=== PATIENT | male | born 1965 | race Caucasian/White ===

== ENCOUNTER 2022-03-08 06:10 | Emergency (ER) | payer MEDICARE, SELFPAY ==
[2022-03-08 06:12] VITALS: BP 125/67; BP 126/82; PULSE 102; PULSE 110; RESP 13; TEMP 36.8; O2SAT 95; O2SAT 96
[2022-03-08 06:21] LABS: Glucose, Whole Blood 81 mg/dL (60-115)
[2022-03-08 06:43] LABS: Glucose, Whole Blood 92 mg/dL (60-115)
--- NOTE | 2022-03-08 07:35 | ED.GENADULT ---
HPI - General Adult General Chief complaint: Altered Mental Status Stated complaint: AMS, POC28 NOW 80 AFTER DEXTROSE Time Seen by Provider: 03/08/22 07:24 Source: patient, family (Son) and EMS Mode of arrival: EMS Limitations: no limitations History of Present Illness HPI narrative: 56 year old male history of insulin-dependent diabetes came in after was found hypoglycemic and unresponsive. History of insulin-dependent diabetes used to control it with Lantus and NovoLog now patient been using insulin pump implant for about 2 weeks now, patient stated that the bump has been working fine for the past 2 weeks blood sugar is running between 120 to 200s. Declined any recent change in insulin dosing. Patient been having vomiting and nonbloody watery diarrhea for 1 day he thinks due to bad food he ate decline abdominal pain. Patient also was doing heavy lifting because he is moving out. Related Data Allergies Allergy/AdvReac Type Severity Reaction Status Date / Time No Known Drug Allergies Allergy Mild NONE Unverified 05/10/20 14:38 [NO KNOWN DRUG ALLERGIES] Review of Systems Review of Systems: All other systems are reviewed and are negative Constitutional: Reports as per HPI and Reports no additional constitutional complaints Eyes: Reports as per HPI and Reports no additional eye complaints Reports system reviewed and no additional complaints, except as documented Cardiovascular: Reports as per HPI and Reports no additional cardiovascular complaints Respiratory: Reports as per HPI and Reports no additional respiratory complaints Gastrointestinal: Reports as per HPI and Reports no additional gastrointestinal complaints Genitourinary: Reports no additional female genitourinary complaints Musculoskeletal: Reports no additional musculoskeletal complaints Skin/Breast: Reports system reviewed and no additional complaints, except as docu Psychiatric: Reports no additional psychiatric complaints Endocrine: Reports no additional endocrine complaints Hematologic/Lymphatic: Reports no additional hematologic/lymphatic complaints Allergic/Immunologic: Reports no additional allergic/immunologic complaints Reports system reviewed and no additional complaints, except as documented and Reports Abnormal speech present [facility] Social History Social History Patient Tobacco Use Status: Current everyday Tobacco user Use of substances other than those prescribed or required for medical reasons: No Advance Directives: Yes Advance Directives Information Provided: Yes Advance Directives on File: No Physical Exam ED Vital Signs: Vital Signs - 24 hr 03/08/22 06:12 03/08/22 07:54 03/08/22 10:30 Temperature 98.2 F Pulse Rate 102 H 106 H 104 H Respiratory Rate 13 16 18 Blood Pressure 125/67 153/77 H 119/56 L Pulse Oximetry 95 97 Oxygen Delivery Method Room Air Room Air BMI result Body Mass Index 20.0 Vital signs have been reviewed as appeared to be correct. Blood pressure normal. Heart rate normal. Respiration rate normal. Temperature normal. Oxygen saturation normal. Appearance: Alert. Oriented X3. No acute distress. Head: Normal external exam. Normocephalic. Atraumatic. No Maya signs noted. No raccoon eyes noted Eyes: PERRLA. EOMI. Conjunctiva and sclera normal. Eyelids normal. ENT: TM's Normal. Pharynx normal. Uvula midline. Moist mucous membranes. No trismus noted. No drooling noted. No muffled voice noted. Neck: Normal inspection. Neck supple. FROM. No adenopathy. Thyroid Normal. No meningeal signs. No neck mass noted. CVS: Normal heart rate and rhythm. Heart sound normal. No murmurs noted. Pulses normal throughout. Respiratory: No respiratory distress. Painless inspiration. Breath sounds normal. No wheezes/rales/rhonchi noted. Chest nontender. No accessory muscle usage noted or decreased air movement noted. Abdomen: Soft and nontender. Bowel sounds normal in all 4 quadrants. No distention noted. No organomegaly noted. No visible injury noted. Back: No CVA tenderness. Full range of motion noted. Skin: Skin warm and dry. Normal skin color. Normal skin turgor. No rashes/lesions/lacerations noted. Extremities: No lower extremity edema. Extremities exhibit normal range of motion. Extremities nontender. Neuro: Oriented X 3. Cranial nerve exam: II-XII are grossly intact No motor deficit. No sensory deficit. Reflexes normal. Course Course Course Narrative: 56-year-old history of insulin-dependent diabetes recently start using insulin pump to control his diabetes, found unresponsive this morning after strenuous physical activity yesterday patient is trying to move out of his house, patient was observed in the emergency department, able to tolerate p.o. intake with no nausea or vomiting, leukocytosis likely reactionary to hypoglycemia and stress, physical exam/UA revealed no source of infection. Patient is back to his normal baseline. Will discharge to follow-up with PCP. Medical Decision Making Lab Data Lab results reviewed: Yes I reviewed the patient's lab results. Result diagrams: 03/08/22 07:53 03/08/22 07:53 Labs: Lab Results 03/08/22 03/08/22 03/08/22 Range/Units 06:18 06:40 07:53 WBC 20.5 H (4.8-10.8) X10*3/uL RBC 4.12 L (4.60-5.80) X10*6/uL Hgb 12.3 L (14.0-18.0) g/dl Hct 36.4 L (42.0-52.0) % MCV 88.3 (80.0-98.0) fL MCH 29.9 (27.0-33.0) pg MCHC 33.8 (31.0-36.0) g/dl RDW 13.2 (11.0-16.0) % Plt Count 313 (160-400) X10*3/uL MPV 9.8 (9.4-12.4) fL Immature Gran % (Auto) 0.6 H (0.0-0.4) % Neut % (Auto) 82.8 H (45-73) % Lymph % (Auto) 6.9 L (20-40) % [place] % (Auto) 5.7 (2-11) % Eos % (Auto) 3.8 (0-4) % Baso % (Auto) 0.2 (0-2) % Lymph # (Auto) 1.4 (1.2-4.9) X10*3/uL [place] # (Auto) 1.2 (0.1-1.2) X10*3/uL Eos # (Auto) 0.8 H (0.0-0.4) X10*3/uL Baso # (Auto) 0.0 (0.0-0.2) X10*3/uL Abs Immat Gran (auto) 0.12 H (0.00-0.03) X10*3/uL Absolute Neuts (auto) 17.0 H (2.0-8.3) x10*3/uL Absolute Nucleated RBC 0.000 (0.0-0.012) X10*3/uL Nucleated RBC % (auto) 0.0 (0.0-0.2) /100WBC Sodium (135-145) mmol/L Potassium (3.3-5.1) mmol/L Chloride (96-108) mmol/L Carbon Dioxide (22-29) mmol/L Anion Gap (12-20) BUN (9-16) mg/dL Creatinine (0.5-1.4) mg/dL Estim Creat Clear Calc Estimated GFR POC Glucose 81 92 (60-115) mg/dL Random Glucose (60-115) mg/dL Calcium (8.4-10.2) mg/dL Total Bilirubin (0.0-1.0) mg/dL Direct Bilirubin (0.0-0.5) mg/dL AST (5-37) U/L ALT (0-40) U/L Alkaline Phosphatase (39-117) U/L Troponin I High Sens (<3.5-35.0) ng/L Total Protein (6.5-8.0) g/dL Albumin (3.5-5.0) g/dL Lipase (8-78) U/L Urine Color Urine Appearance Urine pH (5.0-8.0) Ur Specific [place] (1.005-1.025) Urine Protein (NEG-TRACE) MG/DL Urine Glucose (UA) (NEG) MG/DL Urine Ketones (NEG) MG/DL Urine Blood (NEG) Urine Nitrite (NEG) Ur Leukocyte Esterase (NEG) Urine RBC (0) /HPF Urine WBC (0-4) /HPF Ur Squamous Epith Cells /LPF Urine Bacteria /LPF Urine Mucus /LPF COVID-19 (GABBY) (Negative) COVID-19 Clin Com 03/08/22 03/08/22 03/08/22 Range/Units 07:53 07:53 07:53 WBC (4.8-10.8) X10*3/uL RBC (4.60-5.80) X10*6/uL Hgb (14.0-18.0) g/dl Hct (42.0-52.0) % MCV (80.0-98.0) fL MCH (27.0-33.0) pg MCHC (31.0-36.0) g/dl RDW (11.0-16.0) % Plt Count (160-400) X10*3/uL MPV (9.4-12.4) fL Immature Gran % (Auto) (0.0-0.4) % Neut % (Auto) (45-73) % Lymph % (Auto) (20-40) % [place] % (Auto) (2-11) % Eos % (Auto) (0-4) % Baso % (Auto) (0-2) % Lymph # (Auto) (1.2-4.9) X10*3/uL [place] # (Auto) (0.1-1.2) X10*3/uL Eos # (Auto) (0.0-0.4) X10*3/uL Baso # (Auto) (0.0-0.2) X10*3/uL Abs Immat Gran (auto) (0.00-0.03) X10*3/uL Absolute Neuts (auto) (2.0-8.3) x10*3/uL Absolute Nucleated RBC (0.0-0.012) X10*3/uL Nucleated RBC % (auto) (0.0-0.2) /100WBC Sodium 138 (135-145) mmol/L Potassium 4.2 (3.3-5.1) mmol/L Chloride 102 (96-108) mmol/L Carbon Dioxide 26 (22-29) mmol/L Anion Gap 14 (12-20) BUN 20 H (9-16) mg/dL Creatinine 1.24 (0.5-1.4) mg/dL Estim Creat Clear Calc 55.7 Estimated GFR > 60 POC Glucose (60-115) mg/dL Random Glucose 108 (60-115) mg/dL Calcium 9.8 (8.4-10.2) mg/dL Total Bilirubin 0.5 (0.0-1.0) mg/dL Direct Bilirubin 0.2 (0.0-0.5) mg/dL AST 37 (5-37) U/L ALT 18 (0-40) U/L Alkaline Phosphatase 80 (39-117) U/L Troponin I High Sens 5.3 (<3.5-35.0) ng/L Total Protein 7.5 (6.5-8.0) g/dL Albumin 4.6 (3.5-5.0) g/dL Lipase 9 (8-78) U/L Urine Color Urine Appearance Urine pH (5.0-8.0) Ur Specific [place] (1.005-1.025) Urine Protein (NEG-TRACE) MG/DL Urine Glucose (UA) (NEG) MG/DL Urine Ketones (NEG) MG/DL Urine Blood (NEG) Urine Nitrite (NEG) Ur Leukocyte Esterase (NEG) Urine RBC (0) /HPF Urine WBC (0-4) /HPF Ur Squamous Epith Cells /LPF Urine Bacteria /LPF Urine Mucus /LPF COVID-19 (GABBY) Negative (Negative) COVID-19 Clin Com See Note 03/08/22 03/08/22 03/08/22 Range/Units 07:57 10:28 11:06 WBC (4.8-10.8) X10*3/uL RBC (4.60-5.80) X10*6/uL Hgb (14.0-18.0) g/dl Hct (42.0-52.0) % MCV (80.0-98.0) fL MCH (27.0-33.0) pg MCHC (31.0-36.0) g/dl RDW (11.0-16.0) % Plt Count (160-400) X10*3/uL MPV (9.4-12.4) fL Immature Gran % (Auto) (0.0-0.4) % Neut % (Auto) (45-73) % Lymph % (Auto) (20-40) % [place] % (Auto) (2-11) % Eos % (Auto) (0-4) % Baso % (Auto) (0-2) % Lymph # (Auto) (1.2-4.9) X10*3/uL [place] # (Auto) (0.1-1.2) X10*3/uL Eos # (Auto) (0.0-0.4) X10*3/uL Baso # (Auto) (0.0-0.2) X10*3/uL Abs Immat Gran (auto) (0.00-0.03) X10*3/uL Absolute Neuts (auto) (2.0-8.3) x10*3/uL Absolute Nucleated RBC (0.0-0.012) X10*3/uL Nucleated RBC % (auto) (0.0-0.2) /100WBC Sodium (135-145) mmol/L Potassium (3.3-5.1) mmol/L Chloride (96-108) mmol/L Carbon Dioxide (22-29) mmol/L Anion Gap (12-20) BUN (9-16) mg/dL Creatinine (0.5-1.4) mg/dL Estim Creat Clear Calc Estimated GFR POC Glucose 110 64 (60-115) mg/dL Random Glucose (60-115) mg/dL Calcium (8.4-10.2) mg/dL Total Bilirubin (0.0-1.0) mg/dL Direct Bilirubin (0.0-0.5) mg/dL AST (5-37) U/L ALT (0-40) U/L Alkaline Phosphatase (39-117) U/L Troponin I High Sens (<3.5-35.0) ng/L Total Protein (6.5-8.0) g/dL Albumin (3.5-5.0) g/dL Lipase (8-78) U/L Urine Color YELLOW Urine Appearance HAZY Urine pH 6.0 (5.0-8.0) Ur Specific [place] 1.025 (1.005-1.025) Urine Protein 2+ H (NEG-TRACE) MG/DL Urine Glucose (UA) NEG (NEG) MG/DL Urine Ketones 5 (NEG) MG/DL Urine Blood 3+ H (NEG) Urine Nitrite NEG (NEG) Ur Leukocyte Esterase NEG (NEG) Urine RBC 0 (0) /HPF Urine WBC 1-4 (0-4) /HPF Ur Squamous Epith Cells NONE /LPF Urine Bacteria NONE /LPF Urine Mucus 1+ /LPF COVID-19 (GABBY) (Negative) COVID-19 Clin Com 03/08/22 Range/Units 11:34 WBC (4.8-10.8) X10*3/uL RBC (4.60-5.80) X10*6/uL Hgb (14.0-18.0) g/dl Hct (42.0-52.0) % MCV (80.0-98.0) fL MCH (27.0-33.0) pg MCHC (31.0-36.0) g/dl RDW (11.0-16.0) % Plt Count (160-400) X10*3/uL MPV (9.4-12.4) fL Immature Gran % (Auto) (0.0-0.4) % Neut % (Auto) (45-73) % Lymph % (Auto) (20-40) % [place] % (Auto) (2-11) % Eos % (Auto) (0-4) % Baso % (Auto) (0-2) % Lymph # (Auto) (1.2-4.9) X10*3/uL [place] # (Auto) (0.1-1.2) X10*3/uL Eos # (Auto) (0.0-0.4) X10*3/uL Baso # (Auto) (0.0-0.2) X10*3/uL Abs Immat Gran (auto) (0.00-0.03) X10*3/uL Absolute Neuts (auto) (2.0-8.3) x10*3/uL Absolute Nucleated RBC (0.0-0.012) X10*3/uL Nucleated RBC % (auto) (0.0-0.2) /100WBC Sodium (135-145) mmol/L Potassium (3.3-5.1) mmol/L Chloride (96-108) mmol/L Carbon Dioxide (22-29) mmol/L Anion Gap (12-20) BUN (9-16) mg/dL Creatinine (0.5-1.4) mg/dL Estim Creat Clear Calc Estimated GFR POC Glucose 220 H (60-115) mg/dL Random Glucose (60-115) mg/dL Calcium (8.4-10.2) mg/dL Total Bilirubin (0.0-1.0) mg/dL Direct Bilirubin (0.0-0.5) mg/dL AST (5-37) U/L ALT (0-40) U/L Alkaline Phosphatase (39-117) U/L Troponin I High Sens (<3.5-35.0) ng/L Total Protein (6.5-8.0) g/dL Albumin (3.5-5.0) g/dL Lipase (8-78) U/L Urine Color Urine Appearance Urine pH (5.0-8.0) Ur Specific [place] (1.005-1.025) Urine Protein (NEG-TRACE) MG/DL Urine Glucose (UA) (NEG) MG/DL Urine Ketones (NEG) MG/DL Urine Blood (NEG) Urine Nitrite (NEG) Ur Leukocyte Esterase (NEG) Urine RBC (0) /HPF Urine WBC (0-4) /HPF Ur Squamous Epith Cells /LPF Urine Bacteria /LPF Urine Mucus /LPF COVID-19 (GABBY) (Negative) COVID-19 Clin Com Discharge Plan Discharge Clinical Impression: Hypoglycemia due to insulin Patient Disposition: Home, Self-Care
[2022-03-08] MEDS: 0.9 % Sodium Chloride 1,000 ML 999 ML IV (07:51)
[2022-03-08] MEDS: ondansetron HCL 4 MG/2 ML VIAL IVPUSH (07:51)
[2022-03-08] MEDS: Famotidine/PF 20 MG/2 ML VIAL IVPUSH (07:52)
[2022-03-08 07:54] VITALS: BP 153/77; PULSE 106; RESP 16; O2SAT 97
[2022-03-08 07:58] LABS: MANUAL DIFF FLAG NO
[2022-03-08 07:59] LABS: Glucose, Whole Blood 110 mg/dL (60-115)
[2022-03-08 08:01] LABS: Basophils Percent Auto 0.2 % (0-2); Eosinophils Absolute Auto 0.8 X10*3/uL (0.0-0.4); Eosinophils Percent Auto 3.8 % (0-4); Hematocrit 36.4 % (42.0-52.0); Hemoglobin 12.3 g/dl (14.0-18.0); Imm Gran Abs Auto 0.12 X10*3/uL (0.00-0.03); Imm Gran Pct Auto 0.6 % (0.0-0.4); Lymphocytes Absolute Auto 1.4 X10*3/uL (1.2-4.9); Lymphocytes Percent Auto 6.9 % (20-40); Mean Corpuscular HGB Conc 33.8 g/dl (31.0-36.0); Mean Corpuscular Hemoglobin 29.9 pg (27.0-33.0); Mean Corpuscular Volume 88.3 fL (80.0-98.0); Mean Platelet Volume 9.8 fL (9.4-12.4); Monocytes Absolute Auto 1.2 X10*3/uL (0.1-1.2); Monocytes Percent Auto 5.7 % (2-11); Neutrophils Percent Auto 82.8 % (45-73); Platelet Count 313 X10*3/uL (160-400); Red Blood Count 4.12 X10*6/uL (4.60-5.80); Red Cell Distribution Width 13.2 % (11.0-16.0); White Blood Count 20.5 X10*3/uL (4.8-10.8)
--- NOTE | 2022-03-08 08:02 | PC.NURSE ---
Pt alert/oriented. Repeat POC 110. Pt reports vomiting but typical for him with low blood sugar. Thirsty. Fluids started and meds given IV as ordered. Son at bedside who states pt was unresponsive and seizure like activity at home [employer]. Son usually able to get sugar up but unable d/t no sugar found in home. Pt denies pain or discomfort. Labs drawn/sent. NSR on tele Skin midly pale, warm and dry
[2022-03-08 08:15] LABS: COVID-19 Test Negative (Negative)
[2022-03-08 08:17] LABS: Alanine Aminotransferase 18 U/L (0-40); Albumin Level 4.6 g/dL (3.5-5.0); Alkaline Phosphatase 80 U/L (39-117); Anion Gap 14 (12-20); Aspartate Amino Transferase 37 U/L (5-37); Bilirubin Direct 0.2 mg/dL (0.0-0.5); Bilirubin Total 0.5 mg/dL (0.0-1.0); Blood Urea Nitrogen 20 mg/dL (9-16); Calcium 9.8 mg/dL (8.4-10.2); Carbon Dioxide 26 mmol/L (22-29); Chloride 102 mmol/L (96-108); Creatinine Clr Calc Pharmacy 55.7; Estimated Glomerular Filt Rate > 60; Glucose Random 108 mg/dL (60-115); Lipase 9 U/L (8-78); Potassium 4.2 mmol/L (3.3-5.1); Sodium 138 mmol/L (135-145); Total Protein 7.5 g/dL (6.5-8.0)
[2022-03-08 08:23] LABS: Troponin-I High Sensitivity 5.3 ng/L (<3.5-35.0)
--- NOTE | 2022-03-08 09:20 | PC.NURSE ---
No bld cx at this time per Dr Amos, awaiting UA and xray, pt encouraged to void, sleeping
[2022-03-08 10:30] VITALS: BP 119/56; PULSE 104; RESP 18
--- NOTE | 2022-03-08 10:31 | PC.NURSE ---
Pt repeat POC 64, given tuna sandwich and gingerale, Dr Amos notified. Pt remains alert/oriented.
[2022-03-08 10:32] LABS: Glucose, Whole Blood 64 mg/dL (60-115)
[2022-03-08 11:13] LABS: Appearance Urine HAZY; Color Urine YELLOW; Glucose Urine UA NEG (NEG); Leukocyte Esterase Urine NEG (NEG); Nitrite Urine NEG (NEG); Specific Gravity - Urine 1.025 (1.005-1.025); UACC Culture Trigger NO; Urine Blood 3+ (NEG); Urine Ketones 5 MG/DL (NEG); Urine Protein 2+ MG/DL (NEG-TRACE)
[2022-03-08 11:24] LABS: Mucus Urine 1+ /LPF
[2022-03-08 11:25] LABS: RBC Urine 0 /HPF (0)
[2022-03-08 11:37] LABS: Glucose, Whole Blood 220 mg/dL (60-115)
== END 2022-03-08 14:12 | disposition home or self-care (01) ==
PROVIDERS: Emergency Provider Emergency Medicine
DX: E11.649 Type 2 diabetes mellitus with hypoglycemia without coma (principal); Z20.822 Contact with and (suspected) exposure to COVID-19; F17.200 Nicotine dependence, unspecified, uncomplicated; Z79.4 Long term (current) use of insulin
CPT/HCPCS: 80048; 80076; 81001; 82947; 83690; 84484; 85025; 87635; 96361; 96374; 96375; 99284; 99285; J2405

== ENCOUNTER 2022-03-09 20:53 | Emergency (ER) | payer MEDICARE, SELFPAY ==
[2022-03-09 21:02] VITALS: BP 144/92; PULSE 99; RESP 16; O2SAT 95; BMI 19.5
--- NOTE | 2022-03-09 21:03 | ECG_ITS ---
Test Reason : ALTERED MENTAL Blood Pressure : / mmHG Vent. Rate : 099 BPM Atrial Rate : 099 BPM P-R Int : 132 ms QRS Dur : 094 ms QT Int : 354 ms P-R-T Axes : 071 065 068 degrees QTc Int : 454 ms Normal sinus rhythm Normal ECG When compared with ECG of 05-DEC-2011 17:16, No significant change was found Referred By: Kelly Balbuena Electronically Signed By:Lex Lord
--- NOTE | 2022-03-09 21:05 | ED.AMS ---
HPI - Altered Mental Status General Chief Complaint: Altered Mental Status Stated Complaint: Hypoglycemia Time Seen by Provider: 03/09/22 21:03 Source: patient Mode of arrival: EMS Limitations: no limitations History of Present Illness MD complaint: altered mental status and decreased responsiveness Onset (ago): minute(s) (just prior to arrival ) Timing confirmed by: family member Severity: moderate Context: alcohol abuse (recently drank today doesn't think he ate dinner, still has insulin pump on) Associated symptoms: malaise Treatments prior to arrival: other (EMS states his device read 64 and he refused oral glucose gel so when they brought him here BS 44 with our machine, fed and gave patient juice right away, he perked up and removed his device) Related Data Allergies Allergy/AdvReac Type Severity Reaction Status Date / Time No Known Drug Allergies Allergy Mild NONE Verified 03/09/22 21:04 [NO KNOWN DRUG ALLERGIES] Review of Systems Review of Systems: Constitutional : No Fever, No Chills ENT/Mouth : No sore throat, No Rhinorrhea Eyes: No Eye Pain, No Swelling, No Redness Cardiovascular : No Chest Pain, No SOB, No Dyspnea on Exertion, No Orthopnea, No Edema, No Palpitations Respiratory : No Cough, No Sputum, No Wheezing Gastrointestinal : No Nausea, No Vomiting, No Diarrhea, No abdominal Pain, No Hematochezia, No Melena Genitourinary : No Dysuria, No Urinary Frequency, No Hematuria, Musculoskeletal : No joint pain, No Myalgias, No Joint Swelling Skin : No Skin Lesions, No rash Neuro : No Weakness, No Numbness, No Dizziness, No Headache Psych : No Anxiety/Panic, No Depression Heme/Lymph: No Bruising, No Bleeding,No Lymphadenopathy Endocrine : No Polyuria, No Polydipsia All other systems reviewed and are negative [facility] Past Medical History Attestation statement: The following information was validated with the patient. Medical History Diabetes Social History Social History (Updated 03/09/22 @ 21:06 by Kelly Balbuena DO) Alcohol intake: current Alcohol intake frequency: a few times a month Alcohol type: hard liquor Patient Tobacco Use Status: Current everyday Tobacco user Smoked in Last 30 Days: Yes Use of substances other than those prescribed or required for medical reasons: No Advance Directives: No Advance Directives Information Provided: No Physical Exam ED Vital Signs: Vital Signs - 24 hr 03/09/22 21:02 03/09/22 22:00 03/09/22 23:46 Temperature 98.2 F Pulse Rate 99 97 99 Respiratory Rate 16 16 16 Blood Pressure 144/92 H 140/70 H 140/57 H Pulse Oximetry 95 98 96 Oxygen Delivery Method Room Air Room Air Room Air BMI result Body Mass Index 19.5 Appearance: Oriented X3. No acute distress. slightly sleepy Eyes: Pupils equal, round and reactive to light. ENT: Pharynx mildly dry MM Neck: Normal inspection. Neck supple. CVS: Normal heart rate and rhythm. Pulses normal. Respiratory: No respiratory distress. Breath sounds normal. Abdomen: Soft and non-tender. insulin device removed Skin: Skin warm and dry. Normal skin color. Normal skin turgor. Extremities: No lower extremity edema. Neuro: Oriented X 3. No motor deficit. No sensory deficit. Course Course Course Narrative: no response to oral food still in 50s on recheck aga give IV dextrose and observe BS up to 300s mild dehydration, BS up at baseline, eating - attempting to find ride home at this time MDM - Altered Mental Status MDM Narrative Medical decision making narrative: 56 yo male hx of IDDM with ETOH use today still came in with his insulin pump on - not treated prior to arrival, BS 44 on arrival. Responded to oral food here. Denies recently being ill. Suspect he drank today and didn't eat dinner - doesn't remember eating dinner tonight. No head trauma. Lab Data Result diagrams: 03/09/22 21:35 03/09/22 21:35 Labs: Lab Results 03/09/22 03/09/22 03/09/22 Range/Units 20:59 21:16 21:29 WBC (4.8-10.8) X10*3/uL RBC (4.60-5.80) X10*6/uL Hgb (14.0-18.0) g/dl Hct (42.0-52.0) % MCV (80.0-98.0) fL MCH (27.0-33.0) pg MCHC (31.0-36.0) g/dl RDW (11.0-16.0) % Plt Count (160-400) X10*3/uL MPV (9.4-12.4) fL Immature Gran % (Auto) (0.0-0.4) % Neut % (Auto) (45-73) % Lymph % (Auto) (20-40) % [place] % (Auto) (2-11) % Eos % (Auto) (0-4) % Baso % (Auto) (0-2) % Lymph # (Auto) (1.2-4.9) X10*3/uL [place] # (Auto) (0.1-1.2) X10*3/uL Eos # (Auto) (0.0-0.4) X10*3/uL Baso # (Auto) (0.0-0.2) X10*3/uL Abs Immat Gran (auto) (0.00-0.03) X10*3/uL Absolute Neuts (auto) (2.0-8.3) x10*3/uL Absolute Nucleated RBC (0.0-0.012) X10*3/uL Nucleated RBC % (auto) (0.0-0.2) /100WBC Sodium (135-145) mmol/L Potassium (3.3-5.1) mmol/L Chloride (96-108) mmol/L Carbon Dioxide (22-29) mmol/L Anion Gap (12-20) BUN (9-16) mg/dL Creatinine (0.5-1.4) mg/dL Estim Creat Clear Calc Estimated GFR POC Glucose 44 L* 55 L* 314 H (60-115) mg/dL Random Glucose (60-115) mg/dL Calcium (8.4-10.2) mg/dL Magnesium (1.6-2.6) mg/dL Total Bilirubin (0.0-1.0) mg/dL Direct Bilirubin (0.0-0.5) mg/dL AST (5-37) U/L ALT (0-40) U/L Alkaline Phosphatase (39-117) U/L Total Protein (6.5-8.0) g/dL Albumin (3.5-5.0) g/dL Ethyl Alcohol mg/dL COVID-19 (GABBY) (Negative) COVID-19 Clin Com 03/09/22 03/09/22 03/09/22 Range/Units 21:35 21:35 21:35 WBC 13.8 H (4.8-10.8) X10*3/uL RBC 3.95 L (4.60-5.80) X10*6/uL Hgb 12.2 L (14.0-18.0) g/dl Hct 36.8 L (42.0-52.0) % MCV 93.2 (80.0-98.0) fL MCH 30.9 (27.0-33.0) pg MCHC 33.2 (31.0-36.0) g/dl RDW 13.1 (11.0-16.0) % Plt Count 266 (160-400) X10*3/uL MPV 10.7 (9.4-12.4) fL Immature Gran % (Auto) 0.4 (0.0-0.4) % Neut % (Auto) 67.4 (45-73) % Lymph % (Auto) 11.0 L (20-40) % [place] % (Auto) 8.8 (2-11) % Eos % (Auto) 12.2 H (0-4) % Baso % (Auto) 0.2 (0-2) % Lymph # (Auto) 1.5 (1.2-4.9) X10*3/uL [place] # (Auto) 1.2 (0.1-1.2) X10*3/uL Eos # (Auto) 1.7 H (0.0-0.4) X10*3/uL Baso # (Auto) 0.0 (0.0-0.2) X10*3/uL Abs Immat Gran (auto) 0.06 H (0.00-0.03) X10*3/uL Absolute Neuts (auto) 9.3 H (2.0-8.3) x10*3/uL Absolute Nucleated RBC 0.000 (0.0-0.012) X10*3/uL Nucleated RBC % (auto) 0.0 (0.0-0.2) /100WBC Sodium 138 (135-145) mmol/L Potassium 4.4 (3.3-5.1) mmol/L Chloride 104 (96-108) mmol/L Carbon Dioxide 20 L (22-29) mmol/L Anion Gap 18 (12-20) BUN 19 H (9-16) mg/dL Creatinine 1.58 H (0.5-1.4) mg/dL Estim Creat Clear Calc 42.8 Estimated GFR 46 POC Glucose (60-115) mg/dL Random Glucose 336 H D (60-115) mg/dL Calcium 8.7 D (8.4-10.2) mg/dL Magnesium 2.0 (1.6-2.6) mg/dL Total Bilirubin 0.3 (0.0-1.0) mg/dL Direct Bilirubin 0.2 (0.0-0.5) mg/dL AST 57 H (5-37) U/L ALT 38 (0-40) U/L Alkaline Phosphatase 73 (39-117) U/L Total Protein 7.1 (6.5-8.0) g/dL Albumin 4.4 (3.5-5.0) g/dL Ethyl Alcohol 19 mg/dL COVID-19 (GABBY) Negative (Negative) COVID-19 Clin Com See Note 03/09/22 Range/Units 23:43 WBC (4.8-10.8) X10*3/uL RBC (4.60-5.80) X10*6/uL Hgb (14.0-18.0) g/dl Hct (42.0-52.0) % MCV (80.0-98.0) fL MCH (27.0-33.0) pg MCHC (31.0-36.0) g/dl RDW (11.0-16.0) % Plt Count (160-400) X10*3/uL MPV (9.4-12.4) fL Immature Gran % (Auto) (0.0-0.4) % Neut % (Auto) (45-73) % Lymph % (Auto) (20-40) % Cass[place] % (Auto) (2-11) % Eos % (Auto) (0-4) % Baso % (Auto) (0-2) % Lymph # (Auto) (1.2-4.9) X10*3/uL Cassia # (Auto) (0.1-1.2) X10*3/uL Eos # (Auto) (0.0-0.4) X10*3/uL Baso # (Auto) (0.0-0.2) X10*3/uL Abs Immat Gran (auto) (0.00-0.03) X10*3/uL Absolute Neuts (auto) (2.0-8.3) x10*3/uL Absolute Nucleated RBC (0.0-0.012) X10*3/uL Nucleated RBC % (auto) (0.0-0.2) /100WBC Sodium (135-145) mmol/L Potassium (3.3-5.1) mmol/L Chloride (96-108) mmol/L Carbon Dioxide (22-29) mmol/L Anion Gap (12-20) BUN (9-16) mg/dL Creatinine (0.5-1.4) mg/dL Estim Creat Clear Calc Estimated GFR POC Glucose 476 H* (60-115) mg/dL Random Glucose (60-115) mg/dL Calcium (8.4-10.2) mg/dL Magnesium (1.6-2.6) mg/dL Total Bilirubin (0.0-1.0) mg/dL Direct Bilirubin (0.0-0.5) mg/dL AST (5-37) U/L ALT (0-40) U/L Alkaline Phosphatase (39-117) U/L Total Protein (6.5-8.0) g/dL Albumin (3.5-5.0) g/dL Ethyl Alcohol mg/dL COVID-19 (GABBY) (Negative) COVID-19 Clin Com ECG Data ECG #1: Attestation: I personally reviewed and interpreted this ECG as follows: ECG interpretation date: 03/09/22 ECG interpretation time: 21:33 Interpretation: Rate: 99 Rhythm: NSR Sullivan: normal Normal P waves. Normal ABNER. Normal QRS complex. ST T wave : normal no ROBERT qTC: normal prior studies: no acute ischemia The study has been interpreted contemporaneously by me. . Discharge Plan Discharge Clinical Impression: Hypoglycemia, Acute dehydration Patient Disposition: Home, Self-Care Instructions: Hypoglycemia in a Person with Diabetes (ED), Dehydration (ED) Additional Instructions: return to ED for any worsening symptoms or concerns stay with responsible adult, monitor your sugars please avoid alcohol you were dehydrated make sure you drink at least 60 ounces of water the next two days Stand Alone Forms: Work/School Release
--- NOTE | 2022-03-09 21:18 | PC.NURSE ---
PATIENT CAME IN WITH A BLOOD SUGAR OF 44 ,MD GUILLERMO AWARE ,PATIENT DRANK 5 ORANGE JUICE ,3 SMALL CANDY BARS AND A PB AND J SANDWICH ,BLOOD SUGAR TAKEN AGAIN IT WAS 57 ,MD GUILLERMO AND RN AWARE .
[2022-03-09 21:35] LABS: Glucose, Whole Blood 55 mg/dL (60-115)
[2022-03-09 21:35] LABS: Glucose, Whole Blood 44 mg/dL (60-115)
[2022-03-09 21:36] LABS: Glucose, Whole Blood 314 mg/dL (60-115)
[2022-03-09] MEDS: Dextrose 50 % 25 GM/50 ML SYRINGE IVPUSH (21:37)
[2022-03-09 21:39] LABS: MANUAL DIFF FLAG NO
[2022-03-09] MEDS: 0.9 % Sodium Chloride 1,000 ML 999 ML IV (21:39)
[2022-03-09 21:46] LABS: Basophils Percent Auto 0.2 % (0-2); Eosinophils Absolute Auto 1.7 X10*3/uL (0.0-0.4); Eosinophils Percent Auto 12.2 % (0-4); Hematocrit 36.8 % (42.0-52.0); Hemoglobin 12.2 g/dl (14.0-18.0); Imm Gran Abs Auto 0.06 X10*3/uL (0.00-0.03); Imm Gran Pct Auto 0.4 % (0.0-0.4); Lymphocytes Absolute Auto 1.5 X10*3/uL (1.2-4.9); Mean Corpuscular HGB Conc 33.2 g/dl (31.0-36.0); Mean Corpuscular Hemoglobin 30.9 pg (27.0-33.0); Mean Corpuscular Volume 93.2 fL (80.0-98.0); Mean Platelet Volume 10.7 fL (9.4-12.4); Monocytes Absolute Auto 1.2 X10*3/uL (0.1-1.2); Monocytes Percent Auto 8.8 % (2-11); Neutrophils Absolute Auto 9.3 x10*3/uL (2.0-8.3); Neutrophils Percent Auto 67.4 % (45-73); PLT CLUMP 1; Red Blood Count 3.95 X10*6/uL (4.60-5.80); Red Cell Distribution Width 13.1 % (11.0-16.0); SCAN SMEAR FLAG 1
[2022-03-09 21:48] LABS: Platelet Count 266 X10*3/uL (160-400); White Blood Count 13.8 X10*3/uL (4.8-10.8)
[2022-03-09 21:56] LABS: Alanine Aminotransferase 38 U/L (0-40); Albumin Level 4.4 g/dL (3.5-5.0); Alkaline Phosphatase 73 U/L (39-117); Anion Gap 18 (12-20); Aspartate Amino Transferase 57 U/L (5-37); Bilirubin Direct 0.2 mg/dL (0.0-0.5); Bilirubin Total 0.3 mg/dL (0.0-1.0); Blood Urea Nitrogen 19 mg/dL (9-16); Calcium 8.7 mg/dL (8.4-10.2); Carbon Dioxide 20 mmol/L (22-29); Chloride 104 mmol/L (96-108); Creatinine Clr Calc Pharmacy 42.8; Estimated Glomerular Filt Rate 46; Ethanol 19 mg/dL; Glucose Random 336 mg/dL (60-115); Potassium 4.4 mmol/L (3.3-5.1); Sodium 138 mmol/L (135-145); Total Protein 7.1 g/dL (6.5-8.0)
[2022-03-09 21:58] LABS: COVID-19 Test Negative (Negative)
[2022-03-09 22:00] VITALS: BP 140/70; PULSE 97; RESP 16; TEMP 36.8; O2SAT 98
--- NOTE | 2022-03-09 22:21 | PC.NURSE ---
PATIENT GOT CHANGE INTO HOSPITAL ATTIRE .
--- NOTE | 2022-03-09 22:59 | PC.NURSE ---
pt a&ox3, vss - hypertensive, pt ambulated independently to the bathroom - steady on feet, reports that he is feeling much better.
[2022-03-09] MEDS: 0.9 % Sodium Chloride 1,000 ML 999 ML IVCONT (23:03)
[2022-03-09 23:46] VITALS: BP 140/57; PULSE 99; RESP 16; O2SAT 96
[2022-03-09 23:50] LABS: Glucose, Whole Blood 476 mg/dL (60-115)
== END 2022-03-10 00:52 | disposition home or self-care (01) ==
PROVIDERS: Emergency Provider Emergency Medicine
DX: E86.0 Dehydration (principal); R41.82 Altered mental status, unspecified; E16.2 Hypoglycemia, unspecified; Z20.822 Contact with and (suspected) exposure to COVID-19; Z79.899 Other long term (current) drug therapy
CPT/HCPCS: 80048; 80076; 82077; 82947; 83735; 85025; 87635; 93005; 96374; 99284

== ENCOUNTER 2023-04-05 07:59 | Inpatient (IN) | payer MEDICARE, SELFPAY ==
[2023-04-05] VITALS (12 sets, daily range): BP systolic 99–167; BP diastolic 53–82; PULSE 75–118; RESP 17–28; TEMP 36.8–37.1; O2SAT 96–99; BMI 20.3; BMI 20.5
--- NOTE | ~2023-04-05 | MR_ITS ---
EXAMINATION: MR FOOT WITHOUT AND WITH CONTRAST, RIGHT CLINICAL INFORMATION: Diabetic foot ulcer. COMPARISON: X-ray 04/07/2023. TECHNIQUE: MRI in a 1.5 Chante magnet without and with contrast. 5 mL Gadavist. FINDINGS: There is prominent metallic artifact, distorting the tissue along the plantar aspect of the first proximal phalanx/first DIP joint. This markedly limits evaluation. This likely is related to the metallic foreign body seen on the x-ray. There is soft tissue irregularity, wound/ulceration along the plantar and possibly the lateral aspect of the first toe, in the region of the first IP joint and the marginating phalanges. Metallic artifact limits evaluation. There is circumferential soft tissue swelling of the toe, with increased T2 signal from edema/cellulitis. No loculated or drainable fluid collection/abscess is identified in the provided images. Evaluation of osteomyelitis in the first toe is limited due to artifact. There is apparent increased T2, low T1 signal and enhancement in the first distal phalanx, suspicious for osteomyelitis. Apparent increased T2/low T1 signal and question of enhancement in the first proximal phalanx, appearing more prominent distally. Evaluation is markedly limited by artifact. Findings are suspicious for osteomyelitis. As the suspected osteomyelitis marginates the first IP joint, septic arthritis would need to be considered and excluded. Question mild peritendinitis along the flexor hallucis longus as it courses along the toe. There is increased T2 signal/edema in the intrinsic muscles of foot, which can be seen with denervation in diabetic patients, myositis. There is dorsal foot soft tissue swelling, subcutaneous edema/cellulitis. MR/MR foot RT wo/w con IMPRESSION: Prominent metallic artifact in the plantar aspect of the first toe, limiting evaluation. Soft tissue wound/ulceration along the plantar and possible medial aspect of the first toe as detailed above. There is soft tissue swelling, with edema/cellulitis. No loculated or drainable fluid collection or abscess is seen. Apparent abnormal findings in the first distal phalanx and the first proximal phalanx, suspicious for osteomyelitis. Metallic artifact limits evaluation. Further evaluation with WBC bone scan can be considered as clinically warranted. As suspected osteomyelitis marginates the first IP joint, septic arthritis would need to be considered and excluded in the first IP joint. Question mild peritendinitis of the flexor hallucis longus as it courses in the toe. Edema in the intrinsic muscles of the foot, differential considerations include denervation edema, myositis. Dorsal foot soft tissue swelling and subcutaneous edema/cellulitis.
--- NOTE | ~2023-04-05 | CT_ITS ---
EXAMINATION: CT ABDOMEN AND PELVIS WITHOUT CONTRAST CLINICAL INFORMATION: Abdominal pain. Nausea vomiting and diarrhea. COMPARISON: None available. TECHNIQUE: Multidetector volumetric imaging was performed from the superior aspect of the liver through the pubic symphysis. Sagittal and coronal reformatted images were obtained on the technologist's workstation. This CT examination was performed using dose optimization techniques as appropriate, variously including the following: *Automated exposure control *Adjustment of mA and/or kV according to patient size (this includes techniques or standardized protocols for targeted exams where dose is matched to indication/reason for exam; i.e. extremities or head) *Use of iterative reconstruction technique DLP: 329 mGy-cm FINDINGS: LUNG BASES: The visualized lung bases are unremarkable. LIVER, GALLBLADDER, AND BILIARY TREE: The liver is normal in size, shape, and attenuation. No focal hepatic lesion or biliary ductal dilatation is present. The gallbladder is unremarkable with no evidence of radiopaque gallstones, gallbladder wall thickening, or obvious pericholecystic inflammatory changes. PANCREAS: Unremarkable. SPLEEN: Unremarkable. ADRENAL GLANDS: Right adrenal gland calcification. There are related to old trauma or infection. No imaging follow-up recommended. The left adrenal gland is normal. KIDNEYS AND URETERS: The kidneys are normal in size, shape, and attenuation. No hydronephrosis, hydroureter, or calculi seen. There is bilateral perinephric stranding. BLADDER: Unremarkable. GASTROINTESTINAL TRACT: Question mild colitis of the left colon and proximal sigmoid colon. Small and large bowel is otherwise unremarkable. The appendix is unremarkable. ABDOMINAL WALL: No significant hernia is appreciated. LYMPH NODES: Normal. VASCULAR: Unremarkable. PELVIC VISCERA: Unremarkable. OSSEOUS STRUCTURES: Unremarkable. CT/CT abdomen pelvis wo IV con IMPRESSION: Question mild colitis of the distal colon. Fleischner guidelines were followed.
--- NOTE | ~2023-04-05 | XR_ITS ---
EXAMINATION: XR FOOT, RIGHT CLINICAL INFORMATION: Left foot ulcer COMPARISON: None available. TECHNIQUE: AP, lateral, and oblique views of the right foot. FINDINGS: Bone alignment is normal. No fracture or dislocation. No x-ray evidence of osteomyelitis. There is a soft tissue dressing overlying the great toe. There is soft tissue swelling of the great toe. On the lateral view there is a radiopaque density projecting over the plantar surface of the great toe adjacent to the proximal phalanx measuring 1 to 2 mm. It is uncertain whether this represents a soft tissue foreign body or could represent something on the skin or related to the dressing. There is a metal radiopaque foreign body suggestive of a broken needle in the soft tissues adjacent to the lateral plantar foot near the calcaneocuboid joint and over the plantar heel consistent with a soft tissue foreign bodies. XR/XR foot RT 2V IMPRESSION: No x-ray evidence of osteomyelitis. Soft tissue swelling of the great toe. 2 mm radiopaque density in the soft tissues adjacent to the plantar proximal phalanx questionable for soft tissue foreign body versus something on the patient's skin or related to dressing. Follow-up x-ray following removal of the dressing could be performed if clinically indicated. 2 broken needles in the plantar foot near the calcaneocuboid joint and calcaneus.
--- NOTE | 2023-04-05 08:10 | ECG_ITS ---
Test Reason : HYPOGLYCEMIA Blood Pressure : / mmHG Vent. Rate : 110 BPM Atrial Rate : 110 BPM P-R Int : 098 ms QRS Dur : 092 ms QT Int : 332 ms P-R-T Axes : 010 070 056 degrees QTc Int : 449 ms Sinus tachycardia with short NH Otherwise normal ECG When compared with ECG of 09-MAR-2022 21:24, No significant change was found Referred By: Marcia Watts Electronically Signed By:KAREEN DIXON MD
--- NOTE | 2023-04-05 08:18 | ED_ITS ---
HPI - General Adult General Chief complaint: General Medical Stated complaint: Needs insulin Time Seen by Provider: 04/05/23 08:10 Source: patient, family and old records reviewed Mode of arrival: ambulatory Limitations: no limitations History of Present Illness HPI narrative: 57-year-old male with history of type 2 diabetes diagnosed at age 29 who presents to the ER for evaluation of nausea, vomiting, diarrhea, abdominal pain after being off of his insulin for the last 3 or 4 days. He states he is usually on insulin pump and follows with endocrinology in [facility]. He was unable to get any supplies or insulin despite calling his software development analyst in the pharmacy. Shortly after running out of his insulin he developed vomiting, diarrhea, weakness and generalized body aches. He denies any chest pain. He urrutia s been short of breath and breathing more rapidly. He is excessively thirsty but unable to tolerate anything p.o.. He has history of DKA in the past. Unsure of what his A1c is. MD complaint: N/V/D since being off of insulin Related Data Home Medications Medication Instructions Recorded Confirmed insulin aspart U-100 100 unit/mL See Rx Instructions .Route .COMPLEX 04/05/23 04/05/23 subcutaneous solution (Novolog U-100 Insulin aspart) Allergies Allergy/AdvReac Type Severity Reaction Status Date / Time No Known Drug Allergies Allergy Mild NONE Verified 04/05/23 08:03 [NO KNOWN DRUG ALLERGIES] atorvastatin AdvReac Intermediate Muscle Verified 04/05/23 12:09 cramps PMFSH Past Medical History Medical History Diabetes Social History Social History (Updated 03/09/22 @ 21:06 by Siria Balbuena DO) Alcohol intake: current Alcohol intake frequency: a few times a month Alcohol type: hard liquor Patient Tobacco Use Status: Current everyday Tobacco user Advance Directives: No Advance Directives Information Provided: Yes Physical Exam ED Vital Signs: Vital Signs - 24 hr 04/05/23 08:04 04/05/23 11:07 Temperature 98.8 F 98.3 F Pulse Rate 118 H 103 H Respiratory Rate 24 H 18 Blood Pressure 155/81 H 119/65 Pulse Oximetry 97 96 Oxygen Delivery Method Room Air Room Air BMI result Body Mass Index 20.3 Course Reevaluation(s) Reevaluation #1: patient with tachypnea, tachycardia, leukocytosis of 16.8. He has bandemia 13% w/ left shift. He is getting 2L IVF now. Meeting sepsis criteria. Will check lactic acid, blood cultures and cover intra-abdominal soucres with Zosyn. Will get CT scan of his abdomen given his tenderness on exam. Not acidotic, not in DKA. Time: 09:37 Reevaluation #2: CT scan with question mild colitis. Patient's lactic acid is normal. His beta hydroxybutyrate is elevated however he is not acidotic at this time. Most likely due to starvation ketosis and recurrent vomiting. He was given 2 L of IV fluids. His sugars down to 168. Will start glucose source with the D5 NS with 40 mEq KCL for maintenance fluids. Will need long-acting insulin verses re- initiation of his insulin pump. Will plan for admission for further treatment. Time: 11:44 Medications Administered Discontinued Medications Generic Name Dose Route Start Last Admin Trade Name Freq PRN Reason Stop Dose Admin Lactated Ringer's 1,000 mls @ 999 mls/hr 04/05/23 08:30 04/05/23 10:04 Lr IV 04/05/23 09:30 Infused .Q1H1M DU Infusion Lactated Ringer's 1,000 mls @ 999 mls/hr 04/05/23 08:30 04/05/23 10:03 Lr IV 04/05/23 09:30 Infused .Q1H1M DU Infusion Piperacillin Sod/Tazobactam 50 mls @ 100 mls/hr 04/05/23 09:40 04/05/23 11:24 Sod 3.375 gm/ Sodium Chloride IV 04/05/23 10:09 Infused ONCE ONE Infusion Insulin Human Regular 5 unit 04/05/23 08:17 04/05/23 08:56 Insulin Regular, Human 100 Unit/Ml 3 Ml Vial IVPUSH 04/05/23 08:18 5 unit ONCE ONE Administration Ondansetron HCl 4 mg 04/05/23 08:17 04/05/23 08:57 Ondansetron Hcl 4 Mg/2 Ml Vial IVPUSH 04/05/23 08:18 4 mg ONCE ONE Administration Medical Decision Making Medical Decision Making MDM Narrative: 57-year-old male with history of DM 1 diagnosed in his 20s who ran out of insulin 34 days ago presents to the ER for evaluation of nausea, vomiting, abdominal pain and diarrhea that started shortly after he ran out of his insulin. He arrives to the ER tachypneic, tachycardic, afebrile. His abdomen is tender on examination any has yellow own diarrhea. He reports diffuse body aches and abdominal pain. 2 IV lines were established and he was immediately given 2 L of IV fluids along with 5 units of intravenous insulin with concern for DKA. His glucose was 375. His pH was within normal limits. He did have a slightly low bicarb and anion gap of 22. This is most likely due to GI losses and starvation ketosis and not DKA. His lab work returned with a leukocytosis and bandemia. Zosyn was started for possible intra-abdominal source. CT scan was performed showing question of mild colitis. Will check GI panel and C diff. His heart rates have improved. His blood pressures remained stable. His lactic acid is normal. He does not appear to be in severe sepsis or septic shock. Will plan for admission with continuation of IV fluids and antibiotics. Differential Diagnosis Differential Diagnoses: The differential diagnosis associated with the presentation includes DKA, HHS, starvation ketosis, dehydration, SIMONE due to GI losses, C diff, viral gastroenteritis, bacterial gastroenteritis, colitis, diverticulitis, sepsis Admission/Observation Consideration of admission/observation: Escalation of care including admission/observation considered Dehydration, SIMONE, hyperglycemia requiring admission Consult Healthcare Provider Management of the patient was discussed with: Hospitalist Lab Data MDM Lab Attestation statement: I reviewed the patient's lab results. Leukocytosis with bandemia, anemia, SIMONE, anion gap with bicarb of 15 consistent with dehydration and GI losses 04/05/23 08:56 04/05/23 08:56 Labs: Lab Results 04/05/23 04/05/23 04/05/23 Range/Units 08:25 08:56 08:56 WBC 16.8 H (4.8-10.8) X10*3/uL RBC 3.81 L (4.60-5.80) X10*6/uL Hgb 11.6 L (14.0-18.0) g/dl Hct 33.6 L (42.0-52.0) % MCV 88.2 (80.0-98.0) fL MCH 30.4 (27.0-33.0) pg MCHC 34.5 (31.0-36.0) g/dl RDW 11.9 (11.0-16.0) % Plt Count 282 (160-400) X10*3/uL MPV 10.1 (9.4-12.4) fL Immature Gran % (Auto) Cancelled Neut % (Auto) Cancelled Lymph % (Auto) Cancelled [place] % (Auto) Cancelled Eos % (Auto) Cancelled Baso % (Auto) Cancelled Lymph # (Auto) Cancelled [place] # (Auto) Cancelled Eos # (Auto) Cancelled Baso # (Auto) Cancelled Abs Immat Gran (auto) Cancelled Absolute Neuts (auto) Cancelled Absolute Nucleated RBC 0.000 (0.0-0.012) X10*3/uL Nucleated RBC % (auto) 0.0 (0.0-0.2) /100WBC Neutrophils % (Manual) 79 H (45-73) % Band Neutrophils % 13 H (3-5) % Lymphocytes % (Manual) 4 L (20-40) % Monocytes % (Manual) 4 (2-11) % Abs Neuts (Manual) 15.5 H (2.0-8.3) X10*3/uL Lymphocytes # (Manual) 0.7 L (1.2-4.9) X10*3/uL Monocytes # (Manual) 0.7 (0.1-1.2) X10*3/uL Platelet Estimate NORMAL (NORMAL) Large Platelets PRESENT Plt Morphology Comment NOTED RBC Morphology NORMAL Kimmy Cells 2+ (3-5) /OIF VBG pH (7.32-7.43) VBG pCO2 mmHg VBG pO2 mmHg VBG HCO3 (22-26) mmol/L VBG O2 Saturation % VBG Base Excess mmol/L Sodium 129 L (135-145) mmol/L Potassium 3.6 (3.3-5.1) mmol/L Chloride 96 (96-108) mmol/L Carbon Dioxide 15 L (22-29) mmol/L Anion Gap 22 H (12-20) BUN 28 H (9-16) mg/dL Creatinine 1.88 H (0.5-1.4) mg/dL Estim Creat Clear Calc 36.9 Estimated GFR 37 POC Glucose 375 H* (60-115) mg/dL Random Glucose 354 H* (60-115) mg/dL Estimat Average Glucose mg/dL Hemoglobin A1c % % Lactic Acid (0.5-2.0) mmol/L Calcium 9.5 D (8.4-10.2) mg/dL Magnesium 1.8 (1.6-2.6) mg/dL Direct Bilirubin 0.2 (0.0-0.5) mg/dL AST 10 (5-37) U/L ALT 11 (0-40) U/L Alkaline Phosphatase 100 (39-117) U/L Total Protein 7.3 (6.5-8.0) g/dL Albumin 3.8 (3.5-5.0) g/dL Beta-Hydroxybutyrate 3.70 H (0.02-0.27) mmol/L COVID-19 (GABBY) (Negative) COVID-19 Clin Com Influenza Type A (SUSAN) (Negative) Influenza Type B (SUSAN) (Negative) Influenza A & B Note 04/05/23 04/05/23 04/05/23 Range/Units 08:56 08:59 10:04 WBC (4.8-10.8) X10*3/uL RBC (4.60-5.80) X10*6/uL Hgb (14.0-18.0) g/dl Hct (42.0-52.0) % MCV (80.0-98.0) fL MCH (27.0-33.0) pg MCHC (31.0-36.0) g/dl RDW (11.0-16.0) % Plt Count (160-400) X10*3/uL MPV (9.4-12.4) fL Immature Gran % (Auto) Neut % (Auto) Lymph % (Auto) [place] % (Auto) Eos % (Auto) Baso % (Auto) Lymph # (Auto) [place] # (Auto) Eos # (Auto) Baso # (Auto) Abs Immat Gran (auto) Absolute Neuts (auto) Absolute Nucleated RBC (0.0-0.012) X10*3/uL Nucleated RBC % (auto) (0.0-0.2) /100WBC Neutrophils % (Manual) (45-73) % Band Neutrophils % (3-5) % Lymphocytes % (Manual) (20-40) % Monocytes % (Manual) (2-11) % Abs Neuts (Manual) (2.0-8.3) X10*3/uL Lymphocytes # (Manual) (1.2-4.9) X10*3/uL Monocytes # (Manual) (0.1-1.2) X10*3/uL Platelet Estimate (NORMAL) Large Platelets Plt Morphology Comment RBC Morphology Kimmy Cells /OIF VBG pH 7.39 (7.32-7.43) VBG pCO2 26 mmHg VBG pO2 63 mmHg VBG HCO3 16 L (22-26) mmol/L VBG O2 Saturation 91.0 % VBG Base Excess -6.6 mmol/L Sodium (135-145) mmol/L Potassium (3.3-5.1) mmol/L Chloride (96-108) mmol/L Carbon Dioxide (22-29) mmol/L Anion Gap (12-20) BUN (9-16) mg/dL Creatinine (0.5-1.4) mg/dL Estim Creat Clear Calc Estimated GFR POC Glucose 211 H (60-115) mg/dL Random Glucose (60-115) mg/dL Estimat Average Glucose 177 mg/dL Hemoglobin A1c % 7.8 % Lactic Acid (0.5-2.0) mmol/L Calcium (8.4-10.2) mg/dL Magnesium (1.6-2.6) mg/dL Direct Bilirubin (0.0-0.5) mg/dL AST (5-37) U/L ALT (0-40) U/L Alkaline Phosphatase (39-117) U/L Total Protein (6.5-8.0) g/dL Albumin (3.5-5.0) g/dL Beta-Hydroxybutyrate (0.02-0.27) mmol/L COVID-19 (GABBY) (Negative) COVID-19 Clin Com Influenza Type A (SUSAN) (Negative) Influenza Type B (SUSAN) (Negative) Influenza A & B Note 04/05/23 04/05/23 04/05/23 Range/Units 10:51 10:51 10:51 WBC (4.8-10.8) X10*3/uL RBC (4.60-5.80) X10*6/uL Hgb (14.0-18.0) g/dl Hct (42.0-52.0) % MCV (80.0-98.0) fL MCH (27.0-33.0) pg MCHC (31.0-36.0) g/dl RDW (11.0-16.0) % Plt Count (160-400) X10*3/uL MPV (9.4-12.4) fL Immature Gran % (Auto) Neut % (Auto) Lymph % (Auto) [place] % (Auto) Eos % (Auto) Baso % (Auto) Lymph # (Auto) [place] # (Auto) Eos # (Auto) Baso # (Auto) Abs Immat Gran (auto) Absolute Neuts (auto) Absolute Nucleated RBC (0.0-0.012) X10*3/uL Nucleated RBC % (auto) (0.0-0.2) /100WBC Neutrophils % (Manual) (45-73) % Band Neutrophils % (3-5) % Lymphocytes % (Manual) (20-40) % Monocytes % (Manual) (2-11) % Abs Neuts (Manual) (2.0-8.3) X10*3/uL Lymphocytes # (Manual) (1.2-4.9) X10*3/uL Monocytes # (Manual) (0.1-1.2) X10*3/uL Platelet Estimate (NORMAL) Large Platelets Plt Morphology Comment RBC Morphology Kimmy Cells /OIF VBG pH (7.32-7.43) VBG pCO2 mmHg VBG pO2 mmHg VBG HCO3 (22-26) mmol/L VBG O2 Saturation % VBG Base Excess mmol/L Sodium (135-145) mmol/L Potassium (3.3-5.1) mmol/L Chloride (96-108) mmol/L Carbon Dioxide (22-29) mmol/L Anion Gap (12-20) BUN (9-16) mg/dL Creatinine (0.5-1.4) mg/dL Estim Creat Clear Calc Estimated GFR POC Glucose (60-115) mg/dL Random Glucose (60-115) mg/dL Estimat Average Glucose mg/dL Hemoglobin A1c % % Lactic Acid 2.0 (0.5-2.0) mmol/L Calcium (8.4-10.2) mg/dL Magnesium (1.6-2.6) mg/dL Direct Bilirubin (0.0-0.5) mg/dL AST (5-37) U/L ALT (0-40) U/L Alkaline Phosphatase (39-117) U/L Total Protein (6.5-8.0) g/dL Albumin (3.5-5.0) g/dL Beta-Hydroxybutyrate (0.02-0.27) mmol/L COVID-19 (GABBY) Negative (Negative) COVID-19 Clin Com See Note Influenza Type A (SUSAN) Negative (Negative) Influenza Type B (SUSAN) Negative (Negative) Influenza A & B Note See Note 04/05/23 Range/Units 11:07 WBC (4.8-10.8) X10*3/uL RBC (4.60-5.80) X10*6/uL Hgb (14.0-18.0) g/dl Hct (42.0-52.0) % MCV (80.0-98.0) fL MCH (27.0-33.0) pg MCHC (31.0-36.0) g/dl RDW (11.0-16.0) % Plt Count (160-400) X10*3/uL MPV (9.4-12.4) fL Immature Gran % (Auto) Neut % (Auto) Lymph % (Auto) [place] % (Auto) Eos % (Auto) Baso % (Auto) Lymph # (Auto) [place] # (Auto) Eos # (Auto) Baso # (Auto) Abs Immat Gran (auto) Absolute Neuts (auto) Absolute Nucleated RBC (0.0-0.012) X10*3/uL Nucleated RBC % (auto) (0.0-0.2) /100WBC Neutrophils % (Manual) (45-73) % Band Neutrophils % (3-5) % Lymphocytes % (Manual) (20-40) % Monocytes % (Manual) (2-11) % Abs Neuts (Manual) (2.0-8.3) X10*3/uL Lymphocytes # (Manual) (1.2-4.9) X10*3/uL Monocytes # (Manual) (0.1-1.2) X10*3/uL Platelet Estimate (NORMAL) Large Platelets Plt Morphology Comment RBC Morphology Kimmy Cells /OIF VBG pH (7.32-7.43) VBG pCO2 mmHg VBG pO2 mmHg VBG HCO3 (22-26) mmol/L VBG O2 Saturation % VBG Base Excess mmol/L Sodium (135-145) mmol/L Potassium (3.3-5.1) mmol/L Chloride (96-108) mmol/L Carbon Dioxide (22-29) mmol/L Anion Gap (12-20) BUN (9-16) mg/dL Creatinine (0.5-1.4) mg/dL Estim Creat Clear Calc Estimated GFR POC Glucose 168 H (60-115) mg/dL Random Glucose (60-115) mg/dL Estimat Average Glucose mg/dL Hemoglobin A1c % % Lactic Acid (0.5-2.0) mmol/L Calcium (8.4-10.2) mg/dL Magnesium (1.6-2.6) mg/dL Direct Bilirubin (0.0-0.5) mg/dL AST (5-37) U/L ALT (0-40) U/L Alkaline Phosphatase (39-117) U/L Total Protein (6.5-8.0) g/dL Albumin (3.5-5.0) g/dL Beta-Hydroxybutyrate (0.02-0.27) mmol/L COVID-19 (GABBY) (Negative) COVID-19 Clin Com Influenza Type A (SUSAN) (Negative) Influenza Type B (SUSAN) (Negative) Influenza A & B Note ABG Data ABG Results: 16 Attestation ABG: I personally reviewed and interpreted this ABG as follows: Interpretation: normal pH, compensated metabolic acidosis Independent Interpretation I performed an independent interpretation of an: EKG and CT Scan Interpretation: EKG was sinus tachycardia, ventricular rate 110 beats per minute, PA interval short at 98 MS, QTC normal, no ST segment elevations or depressions CT scan reviewed, no free air, no evidence of obstruction, agree with radiologist read Radiology Impression Discussion of test interpretation with radiology: I have reviewed the radiologist's reading. Radiologist Impression: EXAMINATION: CT ABDOMEN AND PELVIS WITHOUT CONTRAST? CLINICAL INFORMATION: Abdominal pain. Nausea vomiting and diarrhea.? COMPARISON: None available. TECHNIQUE: Multidetector volumetric imaging was performed from the superior aspect of the liver through the pubic symphysis. Sagittal and coronal reformatted images were obtained on the technologist's workstation.? This CT examination was performed using dose optimization techniques as appropriate, variously including the following: *Automated exposure control *Adjustment of mA and/or kV according to patient size (this includes techniques or standardized protocols for targeted exams where dose is matched to indication/reason for exam; i.e. extremities or head) *Use of iterative reconstruction technique DLP: 329 mGy-cm FINDINGS: LUNG BASES: The visualized lung bases are unremarkable.? LIVER, GALLBLADDER, AND BILIARY TREE: The liver is normal in size, shape, and attenuation. No focal hepatic lesion or biliary ductal dilatation is present. The gallbladder is unremarkable with no evidence of radiopaque gallstones, gallbladder wall thickening, or obvious pericholecystic inflammatory changes.? PANCREAS: Unremarkable.? SPLEEN: Unremarkable.? ADRENAL GLANDS: Right adrenal gland calcification. There are related to old trauma or infection. No imaging follow-up recommended. The left adrenal gland is normal.? KIDNEYS AND URETERS: The kidneys are normal in size, shape, and attenuation. No hydronephrosis, hydroureter, or calculi seen. There is bilateral perinephric stranding. BLADDER: Unremarkable.? GASTROINTESTINAL TRACT: Question mild colitis of the left colon and proximal sigmoid colon. Small and large bowel is otherwise unremarkable. The appendix is unremarkable.? ABDOMINAL WALL: No significant hernia is appreciated.? LYMPH NODES: Normal. VASCULAR: Unremarkable. PELVIC VISCERA: Unremarkable.? OSSEOUS STRUCTURES: Unremarkable.? CT/CT abdomen pelvis wo IV con IMPRESSION: Question mild colitis of the distal colon External Record Review External record reviewed: Prior outpatient labs and Prior outpatient radiology Prescription Management I considered prescription management with: Pain Medication and Antibiotic Chronic Conditions Patient?s care impacted by: Diabetes Social Determinants Patient?s care significantly limited by Social Determinants of Health including: Other Social Determinant of Health Critical Care Time Critical Care Time Critical Care Time: Yes Total Critical Care Time: 44 Attestation: I have personally provided critical care time exclusive of time spent on separately billable procedures. Time includes review of lab data, radiology results, discussion with consultants, and monitoring for potential decompensation. Intervention performed as documented. Discharge Plan Discharge Clinical Impression: Colitis, Hyperglycemia, SIMONE (acute kidney injury), Acute dehydration Patient Disposition: Admitted As Inpatient
--- NOTE | 2023-04-05 08:19 | MHC.EDTECH ---
Patients son left number with attendance secretary. Dominic Nair [phone]. He would like to be called with updates and when he is ready.
[2023-04-05 08:34] LABS: Glucose, Whole Blood 375 mg/dL (60-115)
[2023-04-05] MEDS: Insulin Regular, Human 100 UNIT/ML 3 ML VIAL IVPUSH (08:56)
[2023-04-05] MEDS: ondansetron HCL 4 MG/2 ML VIAL IVPUSH ×4 (08:57→20:15)
[2023-04-05] MEDS: Lactated Ringers 1,000 ML 999 ML IV ×2 (08:58→08:59)
[2023-04-05 09:05] LABS: Hematocrit 33.6 % (42.0-52.0); Hemoglobin 11.6 g/dl (14.0-18.0); Mean Corpuscular HGB Conc 34.5 g/dl (31.0-36.0); Mean Corpuscular Hemoglobin 30.4 pg (27.0-33.0); Mean Corpuscular Volume 88.2 fL (80.0-98.0); Mean Platelet Volume 10.1 fL (9.4-12.4); Platelet Count 282 X10*3/uL (160-400); Red Blood Count 3.81 X10*6/uL (4.60-5.80); Red Cell Distribution Width 11.9 % (11.0-16.0); White Blood Count 16.8 X10*3/uL (4.8-10.8)
[2023-04-05 09:10] LABS: VBG Base Excess -6.6 mmol/L; VBG HCO3 16 mmol/L (22-26); VBG pCO2 26 mmHg; VBG pH 7.39 (7.32-7.43); VBG pO2 63 mmHg
[2023-04-05 09:13] LABS: Venous Blood Gas Refer to POC result
[2023-04-05 09:29] LABS: Lymphocytes Absolute Manual 0.7 X10*3/uL (1.2-4.9); Lymphocytes Percent Manual 4 % (20-40); Monocytes Absolute Manual 0.7 X10*3/uL (0.1-1.2); Monocytes Percent Manual 4 % (2-11); Neutrophils Absolute Manual 15.5 X10*3/uL (2.0-8.3); Neutrophils Percent Manual 79 % (45-73)
[2023-04-05 09:32] LABS: Estimated Average Glucose 177 mg/dL; Hemoglobin A1c % 7.8 %
[2023-04-05 09:35] LABS: Band Neutrophils Percent 13 % (3-5)
[2023-04-05 09:36] LABS: Burr Cells 2+ (3-5) /OIF; RBC Morphology NORMAL
[2023-04-05 09:37] LABS: Large Platelet PRESENT; Platelet Estimate NORMAL (NORMAL); Platelet Morphology Comment NOTED
--- NOTE | 2023-04-05 09:40 | PC.NURSE ---
pt a+o x3, vss. pt reports 06/02 abd tenderness, n/v/weakness. pt has hx of type 2 diabetes but is non-compliant with his insulin. pt's son at bedside and validated information.
--- NOTE | 2023-04-05 09:43 | PC.NURSE ---
pt difficult stick, triage nurse able to insert 22g iv in CLAUDINE and 20g iv in L hand. fluids hung, meds given as ordered. pt resting quietly, no apparent distress. will continue to observe.
[2023-04-05 10:05] LABS: Alanine Aminotransferase 11 U/L (0-40); Albumin Level 3.8 g/dL (3.5-5.0); Alkaline Phosphatase 100 U/L (39-117); Anion Gap 22 (12-20); Aspartate Amino Transferase 10 U/L (5-37); Bilirubin Direct 0.2 mg/dL (0.0-0.5); Blood Urea Nitrogen 28 mg/dL (9-16); Calcium 9.5 mg/dL (8.4-10.2); Carbon Dioxide 15 mmol/L (22-29); Chloride 96 mmol/L (96-108); Creatinine Clr Calc Pharmacy 36.9; Estimated Glomerular Filt Rate 37; Glucose Random 354 mg/dL (60-115); Magnesium 1.8 mg/dL (1.6-2.6); Potassium 3.6 mmol/L (3.3-5.1); Sodium 129 mmol/L (135-145); Total Protein 7.3 g/dL (6.5-8.0)
[2023-04-05 10:08] LABS: Glucose, Whole Blood 211 mg/dL (60-115)
[2023-04-05] MEDS: Piperacillin Sodium/Tazobactam 3.375 GM in 0.9 % Sodium Chloride 50 ML IV ×3 (10:52→22:29)
[2023-04-05 11:19] LABS: Glucose, Whole Blood 168 mg/dL (60-115)
--- NOTE | 2023-04-05 11:25 | PC.NURSE ---
pt difficult stick, cultures and lactic drawn late, antibiotic hung late.
[2023-04-05 11:34] LABS: COVID-19 Test Negative (Negative); IDNOW Serial# 08D9AD1C; IDNOW Serial# BCCEAD1C; Influenza A Negative (Negative); Influenza B2 Negative (Negative)
--- NOTE | 2023-04-05 12:04 | PHA.MEDREC ---
Pharmacy Consult ? Medication Reconciliation Pharmacy has completed the medication reconciliation. Spoke to patient to confirm meds. Per patient, they have a [employer] insulin pump which uses novolog insulin. Patient also states they are supposed to take atorvastatin 10mg daily, but haven't taken it since July 2022 because the medication was giving them muscle cramps, mentioning that they need to speak to their PCP for an alternative. Leaving atorvastatin off med rec since it's been 8 months since last taken and because of patient's reported ADR.
[2023-04-05 12:35] LABS: Bilirubin Total 0.4 mg/dL (0.0-1.0)
[2023-04-05] MEDS: KCl 40 mEq in 5% Dex/0.9% Sod 40 MEQ/1,000 ML IV.SOLN 100 MEQ IV (12:43)
--- NOTE | 2023-04-05 13:09 | PM.IMHP ---
History of Present Illness Date of Service: 04/05/23 Attending physician on admission: Primo Steven Chief Complaint: I ran out of my insulin pump and I have been sick with abdominal pain This is a 57-year-old male with a past medical history significant for insulin-dependent type 1 diabetes mellitus maintain on an insulin pump who to the [facility] emergency department with complaints of nausea, vomiting, diarrhea and abdominal pain ongoing for the past 4 days after he reports being off of his insulin pump due to running out of medication and supplies . Patient reports that he follows normally with endocrinology however has been unable to get his supplies or insulin from the pharmacy. Shortly after running out of insulin, patient's symptoms began. Patient also reports shortness of breath as well as excess thirst however he has been unable to tolerate p.o. intake. CT abdomen and pelvis without contrast: Question mild colitis of the distal colon Initial laboratory results: CBC revealed WBC 16.8, Hgb & Hct 11.6/33.6, VBG is unrevealing, CMP reveals Na 129, carbon dioxide 15, anion gap 22, BUN/creatinine 28/1.8, initial random glucose 375 -downtrending, magnesium 1.8, beta hydroxybutyrate 3.7, lactic acid 2-blood cultures obtained and pending. Urinalysis negative for infection. Respiratory virus panel negative for COVID-19, influenza a/B. In the emergency department the above was performed and patient received 40 mEq of IV K+ in D/NaCl, to our, 4 mg IV ondansetron, 5 units Humulin, 3.375 g Zosyn. The decision was made to admit patient for medical management. Review of Systems Review of Systems: A complete 12 point review of systems has been performed and is negative if not noted in [facility] Medical History (Updated 04/05/23 @ 14:28 by CEDRIC Elkins) Type 1 diabetes Family History (Updated 04/05/23 @ 13:43 by CEDRIC Elkins) Mother Diabetes mellitus Social History Alcohol intake: current Alcohol intake frequency: a few times a month Alcohol type: hard liquor Patient Tobacco Use Status: Current everyday Tobacco user Cigarettes Per Day: 8 Smoked in Last 30 Days: Yes Advance Directives: No Advance Directives Information Provided: Yes Nutrition Risks: No Nutritional Risk and Diabetes new onset/Uncontrolled Meds Allergies Allergy/AdvReac Type Severity Reaction Status Date / Time No Known Drug Allergies Allergy Mild NONE Verified 04/05/23 08:03 [NO KNOWN DRUG ALLERGIES] atorvastatin AdvReac Intermediate Muscle Verified 04/05/23 12:09 cramps Active Medications: Current Medications Potassium Chloride/Dextrose/Sod Cl (Kcl 40 Meq In 5% Dex/0.9% Sod) 40 meq in 1,000 mls @ 100 mls/hr IV .Q10H DU Stop: 04/05/23 21:29 Last Admin: 04/05/23 12:43 Dose: 100 mls/hr Pharmacy Consult (Consult Rx Perform Med Rec) 1 each MISCELLANE ONCE PRN PRN Reason: Consult order Home Medications Medication Instructions Recorded Confirmed Last Taken Type insulin aspart U-100 100 unit/mL See Rx Instructions .Route .COMPLEX 04/05/23 04/05/23 03/31/23 History subcutaneous solution (Novolog U-100 Insulin aspart) Physical Exam Vital Signs and Narrative: Vital Signs: Last Vital Signs Temp 98.3 F 04/05/23 11:07 Pulse 111 H 04/05/23 12:00 Resp 28 H 04/05/23 12:00 BP 135/67 04/05/23 12:00 Pulse Ox 97 04/05/23 12:00 O2 Del Method Room Air 04/05/23 12:00 BMI result Body Mass Index 20.3 Const: Other: General: Appears stated age, in no acute distress, acutely ill-appearing, diaphoretic, answers questions accurately and appropriately,observe retching throughout exam with mild emesis noted -clear and foamy Skin: Warm and well perfused, no obvious bruises or open wounds noted Respiratory: Lungs CTAB, no rales/rhonchi, no expiratory/inspiratorywheezing, Cardiac: Regular rhythm tachycardia on monitor, no rubs, gallops, murmurs or clicks. No JVD/carotid bruits. Abdomen: Soft, tenderness noted to mid abdominal region with palpation, non-distended, bowel sounds noted throughout Extremities: No pedal or bilateral upper extremity edema noted, no erythema tenderness with palpation. Neuro: Alert and oriented x3 Psych: Mood appropriate, no agitation /restlessness noted. Results Labs 04/05/23 08:56 04/05/23 08:56 Labs: Laboratory Results - last 24 hr 04/05/23 04/05/23 04/05/23 08:25 08:56 08:56 MCV 88.2 MCH 30.4 MCHC 34.5 RDW 11.9 Plt Count 282 MPV 10.1 Immature Gran % (Auto) Cancelled Neut % (Auto) Cancelled Lymph % (Auto) Cancelled [place] % (Auto) Cancelled Eos % (Auto) Cancelled Baso % (Auto) Cancelled Lymph # (Auto) Cancelled [place] # (Auto) Cancelled Eos # (Auto) Cancelled Baso # (Auto) Cancelled Abs Immat Gran (auto) Cancelled Absolute Neuts (auto) Cancelled Absolute Nucleated RBC 0.000 Nucleated RBC % (auto) 0.0 Neutrophils % (Manual) 79 H Band Neutrophils % 13 H Lymphocytes % (Manual) 4 L Monocytes % (Manual) 4 Abs Neuts (Manual) 15.5 H Lymphocytes # (Manual) 0.7 L Monocytes # (Manual) 0.7 Platelet Estimate NORMAL Large Platelets PRESENT Plt Morphology Comment NOTED RBC Morphology NORMAL [place] Cells 2+ (3-5) VBG pH VBG pCO2 VBG pO2 VBG HCO3 VBG O2 Saturation VBG Base Excess Anion Gap 22 H Estim Creat Clear Calc 36.9 Estimated GFR 37 POC Glucose 375 H* Random Glucose 354 H* Estimat Average Glucose Hemoglobin A1c % Lactic Acid Calcium 9.5 D Magnesium 1.8 Total Bilirubin 0.4 Direct Bilirubin 0.2 AST 10 ALT 11 Alkaline Phosphatase 100 Total Protein 7.3 Albumin 3.8 Beta-Hydroxybutyrate 3.70 H COVID-19 (GABBY) COVID-19 Clin Com Influenza Type A (SUSAN) Influenza Type B (SUSAN) Influenza A & B Note 04/05/23 04/05/23 04/05/23 08:56 08:59 10:04 MCV MCH MCHC RDW Plt Count MPV Immature Gran % (Auto) Neut % (Auto) Lymph % (Auto) [place] % (Auto) Eos % (Auto) Baso % (Auto) Lymph # (Auto) [place] # (Auto) Eos # (Auto) Baso # (Auto) Abs Immat Gran (auto) Absolute Neuts (auto) Absolute Nucleated RBC Nucleated RBC % (auto) Neutrophils % (Manual) Band Neutrophils % Lymphocytes % (Manual) Monocytes % (Manual) Abs Neuts (Manual) Lymphocytes # (Manual) Monocytes # (Manual) Platelet Estimate Large Platelets Plt Morphology Comment RBC Morphology [place] Cells VBG pH 7.39 VBG pCO2 26 VBG pO2 63 VBG HCO3 16 L VBG O2 Saturation 91.0 VBG Base Excess -6.6 Anion Gap Estim Creat Clear Calc Estimated GFR POC Glucose 211 H Random Glucose Estimat Average Glucose 177 Hemoglobin A1c % 7.8 Lactic Acid Calcium Magnesium Total Bilirubin Direct Bilirubin AST ALT Alkaline Phosphatase Total Protein Albumin Beta-Hydroxybutyrate COVID-19 (GABBY) COVID-19 Clin Com Influenza Type A (SUSAN) Influenza Type B (SUSAN) Influenza A & B Note 04/05/23 04/05/23 04/05/23 10:51 10:51 10:51 MCV MCH MCHC RDW Plt Count MPV Immature Gran % (Auto) Neut % (Auto) Lymph % (Auto) [place] % (Auto) Eos % (Auto) Baso % (Auto) Lymph # (Auto) [place] # (Auto) Eos # (Auto) Baso # (Auto) Abs Immat Gran (auto) Absolute Neuts (auto) Absolute Nucleated RBC Nucleated RBC % (auto) Neutrophils % (Manual) Band Neutrophils % Lymphocytes % (Manual) Monocytes % (Manual) Abs Neuts (Manual) Lymphocytes # (Manual) Monocytes # (Manual) Platelet Estimate Large Platelets Plt Morphology Comment RBC Morphology [place] Cells VBG pH VBG pCO2 VBG pO2 VBG HCO3 VBG O2 Saturation VBG Base Excess Anion Gap Estim Creat Clear Calc Estimated GFR POC Glucose Random Glucose Estimat Average Glucose Hemoglobin A1c % Lactic Acid 2.0 Calcium Magnesium Total Bilirubin Direct Bilirubin AST ALT Alkaline Phosphatase Total Protein Albumin Beta-Hydroxybutyrate COVID-19 (GABBY) Negative COVID-19 Clin Com See Note Influenza Type A (SUSAN) Negative Influenza Type B (SUSAN) Negative Influenza A & B Note See Note 04/05/23 11:07 MCV MCH MCHC RDW Plt Count MPV Immature Gran % (Auto) Neut % (Auto) Lymph % (Auto) [place] % (Auto) Eos % (Auto) Baso % (Auto) Lymph # (Auto) [place] # (Auto) Eos # (Auto) Baso # (Auto) Abs Immat Gran (auto) Absolute Neuts (auto) Absolute Nucleated RBC Nucleated RBC % (auto) Neutrophils % (Manual) Band Neutrophils % Lymphocytes % (Manual) Monocytes % (Manual) Abs Neuts (Manual) Lymphocytes # (Manual) Monocytes # (Manual) Platelet Estimate Large Platelets Plt Morphology Comment RBC Morphology [place] Cells VBG pH VBG pCO2 VBG pO2 VBG HCO3 VBG O2 Saturation VBG Base Excess Anion Gap Estim Creat Clear Calc Estimated GFR POC Glucose 168 H Random Glucose Estimat Average Glucose Hemoglobin A1c % Lactic Acid Calcium Magnesium Total Bilirubin Direct Bilirubin AST ALT Alkaline Phosphatase Total Protein Albumin Beta-Hydroxybutyrate COVID-19 (GABBY) COVID-19 Clin Com Influenza Type A (SUSAN) Influenza Type B (SUSAN) Influenza A & B Note Imaging Radiologist's Impressions: Impressions Abdomen/Pelvis CT 04/05/23 10:23 IMPRESSION: Question mild colitis of the distal colon. Fleischner guidelines were followed. Assessment and Plan (1) SIMONE (acute kidney injury): Status: Acute (2) Colitis: Status: Acute (3) Severe sepsis with acute organ dysfunction: Status: Acute (4) DKA (diabetic ketoacidosis): Status: Acute Plan Severe sepsis with acute organ dysfunction Colitis - CT abdomen pelvis without contrast revealed question mild colitis of the distal colon. - Patient meets severe sepsis criteria with organ dysfunction associated leukocytosis of 16.8, SIMONE, lactic acid of 2-blood cultures obtained and pending with source of infection being colitis. - Patient received 2 L LR, Zosyn and has been started on 1 L the/NS with 40 of mEq K+ - Clear liquid diet, analgesics, antiemetics and antipyretics ordered - Monitor for improvement. If no improvement consider repeating imaging in or GI consult. DKA -Initially was in DKA on arrival, anion gap noted to be 22, random glucose on arrival 375, the hydroxybutyrate 3.7 - Patient is insulin dependent on insulin pump however he ran out a few days ago. - Random glucose has been improving with IV fluids and insulin, patient is stable to move to telemetry floor - Will repeat BMP - Continue insulin sliding scale with nutrition a.c. HS. - Patient does follow with hardness inspector Khushi Santoyo out of [place] - Patient will require supplies prior to discharge. SIMONE -Patient not having SIMONE with creatinine of 1.88, patient's baseline appears ranged from 1.2. -SIMONE likely secondary to hypovolemia/ GI losses. Received IV fluids. Hold nephrotoxins and trend creatinine in a.m. Hypovolemic hyponatremia -Patient's Na noted to be 129, again likely secondary to hypovolemia/ GI losses -Patient received IV fluids. Will monitor Na levels. Tobacco use Tobacco use Counseling - Patient reports smoking 8 cigarettes daily. He was educated in the importance of abstaining/cutting down from nicotine use. - NRT therapy was offered however patient declined OTHER: DVT prophylaxis - heparin subQ. Intermittent sequential boots. Patient is a full code, confirmed with patient at time of admission HCP/ person to contact is patient's mother Ofelia Hartmann, Time Spent With Patient Time: Total time managing care of this patient today ____ minutes. Quality Stroke Does the patient have a stroke diagnosis?: No VTE Prior VTE?: No VTE Risk Level:: Medical - moderate - high VTE Device Contraindication: N/A - Device Ordered VTE Drug Contraindication: N/A - Med Ordered
[2023-04-05] MEDS: Heparin Sodium,Porcine 5,000 UNIT/ML VIAL 5000 UNIT SUBCUT (14:01)
[2023-04-05] MEDS: Magnesium Sulfate/H2O 2 GM/50 ML PIGGYBACK IV (15:20)
[2023-04-05 16:43] LABS: Anion Gap 25 (12-20); Blood Urea Nitrogen 24 mg/dL (9-16); Calcium 8.7 mg/dL (8.4-10.2); Carbon Dioxide 12 mmol/L (22-29); Chloride 98 mmol/L (96-108); Creatinine Clr Calc Pharmacy 41.8; Estimated Glomerular Filt Rate 43; Glucose Random 471 mg/dL (60-115); Potassium 4.6 mmol/L (3.3-5.1); Sodium 130 mmol/L (135-145)
[2023-04-05] MEDS: 0.9 % Sodium Chloride 1,000 ML 999 ML IV (17:51)
[2023-04-05] MEDS: Insulin Regular/NS 100 UNIT/100 ML PLAST..BAG IVCONT (17:53)
[2023-04-05 18:01] LABS: Appearance Urine Clear; Color Urine Yellow; Glucose Urine UA >=1000 mg/dL (Negative); Leukocyte Esterase Urine Negative (Negative); Nitrite Urine Negative (Negative); PH 5.5 (5.0-9.0); Specific Gravity - Urine 1.025 (1.005-1.025); UMIC TRIGGER UACC YES; Urine Blood Trace (Negative); Urine Ketones 80 mg/dL (Negative); Urine Protein 100 (2+) mg/dL (Neg-Trace)
[2023-04-05] MEDS: Lactated Ringers 1,000 ML 200 ML IVCONT (18:34)
--- NOTE | 2023-04-05 18:38 | PC.NURSE ---
blood glucose 471, ALISHA Shah aware. insulin drip ordered and administered as ordered. pt admitted to ICU.
[2023-04-05 19:02] LABS: Bacteria Urine None Seen (None Seen); Hyaline Casts Urine 0-2 /LPF (0-2); RBC Urine 0-2 /HPF (0-2); Squamous Epithelial Cell Urine 0-2 /HPF (0-2); WBC Urine 0-5 /HPF (0-5)
[2023-04-05 19:05] LABS: Glucose, Whole Blood 563 mg/dL (60-115)
[2023-04-05 20:01] LABS: Glucose, Whole Blood 516 mg/dL (60-115)
[2023-04-05 20:24] LABS: VBG Base Excess -12.9 mmol/L; VBG HCO3 10 mmol/L (22-26); VBG pCO2 17 mmHg; VBG pH 7.35 (7.32-7.43); VBG pO2 214 mmHg
--- NOTE | 2023-04-05 20:29 | PM.EVENT ---
Documented by User: Rachael Hartmann NP 04/05/23 20:38 Event Note Date of Service: 04/05/23 Event Note: Glucose initially improving with IV fluids and IV insulin, now worsening requiring insulin gtt. Patient transferred to ICU for further management of DKA. Time Spent With Patient Time: Total time managing care of this patient today ____ minutes. Documented by User: Ethan Weiner MD 04/06/23 13:07 Event Note Date of Service: 04/06/23
[2023-04-05 20:43] LABS: Anion Gap 24 (12-20); Blood Urea Nitrogen 25 mg/dL (9-16); Calcium 8.5 mg/dL (8.4-10.2); Carbon Dioxide 10 mmol/L (22-29); Chloride 101 mmol/L (96-108); Creatinine Clr Calc Pharmacy 39.4; Estimated Glomerular Filt Rate 40; Glucose Random 526 mg/dL (60-115); Sodium 131 mmol/L (135-145)
[2023-04-05 20:57] LABS: Venous Blood Gas Refer to POC result
[2023-04-05 21:12] LABS: Glucose, Whole Blood 424 mg/dL (60-115)
[2023-04-05 22:14] LABS: Glucose, Whole Blood 377 mg/dL (60-115)
--- NOTE | 2023-04-05 22:22 | PM.EVENT ---
Documented by User: Rachael Hartmann NP 04/05/23 22:23 Event Note Date of Service: 04/05/23 Event Note: One set of blood cultures reported positive at 11 hours for Gram-positive cocci in chains. Patient presented with systemic inflammatory response with leukocytosis and bandemia. CT scan was performed showing question of mild colitis. Zosyn was started for possible intra-abdominal source.?I've ordered a repeat set of BCs and lactate. Continue Zosyn.? Time Spent With Patient Time: Total time managing care of this patient today ____ minutes. Documented by User: Ethan Weiner MD 04/06/23 13:07 Event Note Date of Service: 04/06/23
[2023-04-05 23:11] LABS: Lactic Acid 1.5 mmol/L (0.5-2.0)
[2023-04-05 23:23] LABS: Glucose, Whole Blood 282 mg/dL (60-115)
[2023-04-06] VITALS (18 sets, daily range): BP systolic 112–174; BP diastolic 50–91; PULSE 76–98; RESP 12–24; TEMP 37.2–37.4; O2SAT 95–100; BMI 19.2
[2023-04-06 00:03] LABS: Glucose, Whole Blood 311 mg/dL (60-115)
[2023-04-06] MEDS: Lactated Ringers 1,000 ML 200 ML IVCONT (00:36)
[2023-04-06] MEDS: 0.9 % Sodium Chloride Flush 3 ML SYRINGE IVFLUSH ×2 (00:36→09:56)
[2023-04-06 00:45] LABS: VBG Base Excess -7.7 mmol/L; VBG HCO3 15 mmol/L (22-26); VBG pCO2 25 mmHg; VBG pH 7.38 (7.32-7.43); VBG pO2 74 mmHg
[2023-04-06 00:48] LABS: Venous Blood Gas Refer to POC result
[2023-04-06 01:18] LABS: Anion Gap 17 (12-20); Blood Urea Nitrogen 24 mg/dL (9-16); Calcium 8.5 mg/dL (8.4-10.2); Carbon Dioxide 16 mmol/L (22-29); Chloride 103 mmol/L (96-108); Creatinine Clr Calc Pharmacy 43.6; Estimated Glomerular Filt Rate 45; Glucose Random 296 mg/dL (60-115); Potassium 3.6 mmol/L (3.3-5.1); Sodium 132 mmol/L (135-145)
[2023-04-06 02:18] LABS: Glucose, Whole Blood 214 mg/dL (60-115)
[2023-04-06] MEDS: Heparin Sodium,Porcine 5,000 UNIT/ML VIAL 5000 UNIT SUBCUT (03:02)
[2023-04-06 03:10] LABS: Glucose, Whole Blood 155 mg/dL (60-115)
[2023-04-06 04:07] LABS: Glucose, Whole Blood 128 mg/dL (60-115)
[2023-04-06] MEDS: KCl 20 mEq in 5 % Dex/Lact Rin 20 MEQ/1,000 ML IV.SOLN 150 MEQ IVCONT (04:09)
--- NOTE | 2023-04-06 04:32 | PM.EVENT ---
Documented by User: Rachael Hartmann NP 04/06/23 04:43 Event Note Date of Service: 04/06/23 Event Note: Diabetic ulcer noted on inferior aspect of right great toe with large hematoma on the right lateral side. Hematoma is approximately the same length as the toe. The patient denies pain due to neuropathy but does report pressure. The patient has been treated for osteomyelitis of the left foot in the past. Wound consult placed. Time Spent With Patient Time: Total time managing care of this patient today ____ minutes. Documented by User: Ethan Weiner MD 04/06/23 13:07 Event Note Date of Service: 04/06/23
--- NOTE | 2023-04-06 04:34 | PC.NURSE ---
ASSUMED CARE OF PT AT 1900. PT A&O X3, DENIES C/O PAIN. WAS C/O NAUSEA AND DRY HEAVING BUT RECEIVED A DOSE OF ZOFRAN AT 2014 WITH GOOD EFFECT. MAINTAINED NPO. ON INSULIN DRIP PER PROTOCOL WITH HOURLY POC. GROUNDMAN CONNOR AWARE OF POC AND INSULIN RATE. CHEMISTRIES DRAWN AT 2000 AND AGAIN AT 0000 AND REVIEWED BY GROUNDMAN. AT 0300, POC DROPPED BELOW 200 AND D51/2 NS STARTED AT 150/HR. LATER CHANGED TO D5LR WITH 20 MEQ OF KCL AT 150/HR. PT STATED HE HAS A HX OF OSTEOMYELITIS OF LEFT FOOT AND HAD A PICC LINE FOR ANTIBIOTICS AT HOME. AT PRESENT, RIGHT GREAT TOE IS REDDENED AND SWOLLEN WITH A DIABETIC ULCER ON LATERAL ASPECT OF THAT TOE WITH A BLOOD BLISTER ON INNER ASPECT BETWEEN GREAT TOE AND 2ND TOE. RED AREA MARKED WITH SURGICAL PEN. SEE PICTURES TAKEN. PROVIDER AWARE AND WOUND CONSULT ORDERED. WOUND LEFT OPEN TO AIR. PT STATES HE HAS NEUROPATHY AND CANNOT FEEL PAIN BUT DOES HAVE A FEELING OF PRESSURE TO THAT TOE.
[2023-04-06 04:50] LABS: MANUAL DIFF FLAG NO
[2023-04-06 04:52] LABS: Basophils Percent Auto 0.2 % (0-2); Eosinophils Percent Auto 0.1 % (0-4); Hematocrit 32.6 % (42.0-52.0); Hemoglobin 11.3 g/dl (14.0-18.0); Imm Gran Abs Auto 0.08 X10*3/uL (0.00-0.03); Imm Gran Pct Auto 0.6 % (0.0-0.4); Lymphocytes Absolute Auto 0.7 X10*3/uL (1.2-4.9); Lymphocytes Percent Auto 5.1 % (20-40); Mean Corpuscular HGB Conc 34.7 g/dl (31.0-36.0); Mean Corpuscular Hemoglobin 30.3 pg (27.0-33.0); Mean Corpuscular Volume 87.4 fL (80.0-98.0); Mean Platelet Volume 10.5 fL (9.4-12.4); Monocytes Absolute Auto 1.4 X10*3/uL (0.1-1.2); Monocytes Percent Auto 9.4 % (2-11); Neutrophils Absolute Auto 12.2 x10*3/uL (2.0-8.3); Neutrophils Percent Auto 84.6 % (45-73); Platelet Count 270 X10*3/uL (160-400); Red Blood Count 3.73 X10*6/uL (4.60-5.80); Red Cell Distribution Width 11.9 % (11.0-16.0); White Blood Count 14.4 X10*3/uL (4.8-10.8)
[2023-04-06 04:56] LABS: VBG Base Excess 0.5 mmol/L; VBG HCO3 22 mmol/L (22-26); VBG pCO2 29 mmHg; VBG pH 7.49 (7.32-7.43); VBG pO2 103 mmHg
[2023-04-06 04:59] LABS: Venous Blood Gas Refer to POC result
[2023-04-06 05:07] LABS: Glucose, Whole Blood 118 mg/dL (60-115)
[2023-04-06] MEDS: Piperacillin Sodium/Tazobactam 3.375 GM in 0.9 % Sodium Chloride 50 ML IV ×4 (05:14→22:51)
[2023-04-06 05:15] LABS: Alanine Aminotransferase 9 U/L (0-40); Albumin Level 3.2 g/dL (3.5-5.0); Alkaline Phosphatase 81 U/L (39-117); Aspartate Amino Transferase 11 U/L (5-37); Bilirubin Total 0.2 mg/dL (0.0-1.0); Blood Urea Nitrogen 21 mg/dL (9-16); Calcium 8.6 mg/dL (8.4-10.2); Chloride 106 mmol/L (96-108); Creatinine Clr Calc Pharmacy 50.9; Estimated Glomerular Filt Rate 53; Glucose Random 128 mg/dL (60-115); Phosphorus 1.2 mg/dL (2.7-4.5); Potassium 3.3 mmol/L (3.3-5.1); Sodium 136 mmol/L (135-145); Total Protein 6.4 g/dL (6.5-8.0)
[2023-04-06 06:06] LABS: Glucose, Whole Blood 115 mg/dL (60-115)
[2023-04-06] MEDS: Insulin Regular/NS 100 UNIT/100 ML PLAST..BAG IVCONT (06:24)
[2023-04-06] MEDS: ondansetron HCL 4 MG/2 ML VIAL IVPUSH ×2 (06:36→22:50)
[2023-04-06 07:14] LABS: Glucose, Whole Blood 120 mg/dL (60-115)
[2023-04-06 08:07] LABS: Glucose, Whole Blood 140 mg/dL (60-115)
[2023-04-06 09:11] LABS: Glucose, Whole Blood 158 mg/dL (60-115)
[2023-04-06 09:28] LABS: Anion Gap 12 (12-20); Carbon Dioxide 21 mmol/L (22-29)
[2023-04-06] MEDS: Metoclopramide HCl 10 MG/2 ML VIAL IVPUSH ×2 (09:52→15:27)
[2023-04-06] MEDS: Insulin Glargine,Hum.rec.anlog 100 UNIT/ML 10 ML VIAL 15 UNIT SUBCUT (09:55)
--- NOTE | 2023-04-06 10:39 | MHC.CM.PN ---
This screenplay writer attempted top meet with patient- sleeping. Will attempt later in the day.
[2023-04-06] MEDS: Potassium Phosphate/NS 15 MMOL/250 ML PLAST..BAG 62.5 MMOL IV ×2 (11:10→14:51)
[2023-04-06 11:31] LABS: Anion Gap 17 (12-20); Blood Urea Nitrogen 16 mg/dL (9-16); Calcium 8.9 mg/dL (8.4-10.2); Carbon Dioxide 20 mmol/L (22-29); Chloride 101 mmol/L (96-108); Creatinine Clr Calc Pharmacy 46.4; Estimated Glomerular Filt Rate 52; Glucose Random 288 mg/dL (60-115); Potassium 3.5 mmol/L (3.3-5.1); Sodium 134 mmol/L (135-145)
[2023-04-06] MEDS: fentaNYL citrate/PF 100 MCG/2 ML VIAL 25 MCG IVPUSH (11:35)
[2023-04-06 11:48] LABS: Glucose, Whole Blood 292 mg/dL (60-115)
[2023-04-06] MEDS: Insulin Lispro 100 UNIT/ML 3 ML VIAL SUBCUT ×3 (12:16→22:49)
--- NOTE | 2023-04-06 13:07 | P.PNCC_ITS ---
Subjective Subjective Date of Service: 04/06/23 Interval History: 57-year-old gentleman with underlying history of type 1 diabetes mellitus on insulin pump, prior acute to osteomyelitis admitted on 04/05/2023 with abdominal discomfort, nausea, diarrhea, and vomiting for 4 days as patient was not able to receive his insulin. On ER evaluation CT abdomen/ pelvis with evidence of colitis. patient initially admitted to telemetry [facility]. However, laboratory studies significant for diabetic ketoacidosis. Patient started on insulin drip and transferred to intensive care unit. No events overnight. Nausea and vomiting improved. Titrated off insulin drip. Critical Care Time (minutes): 0 Physical Exam Vital Signs: Vital Signs: Last Vital Signs Temp 99.0 F 04/06/23 12:00 Pulse 93 04/06/23 12:00 Resp 12 04/06/23 12:00 BP 174/91 H 04/06/23 12:00 Pulse Ox 98 04/06/23 12:00 O2 Del Method Room Air 04/06/23 12:00 BMI result Body Mass Index 19.2 Const: General: no acute distress, alert and awake Eyes: Sclerae: sclerae normal EOM: EOMs intact bilaterally Neck: Neck: Yes no lymphadenopathy, Yes trachea midline and Yes supple Resp: Effort & Inspection: normal respiratory effort and no respiratory distress Auscultation: clear to auscultation bilaterally Cardio: Rate: regular rate Rhythm: regular rhythm Heart sounds: no gallops, no murmurs and no rubs GI: Palpation (GI): Soft to palpation and Other GI palpation findings present ( Nontender) Auscultation: normal bowel sounds Extrem: General: Yes no pedal edema, No clubbing and No cyanosis Objective Data Labs 04/06/23 04:34 04/06/23 10:54 Labs: Laboratory Results - last 24 hr 04/05/23 04/05/23 04/05/23 15:54 17:36 19:00 WBC RBC Hgb Hct MCV MCH MCHC RDW Plt Count MPV Immature Gran % (Auto) Neut % (Auto) Lymph % (Auto) [place] % (Auto) Eos % (Auto) Baso % (Auto) Lymph # (Auto) [place] # (Auto) Eos # (Auto) Baso # (Auto) Abs Immat Gran (auto) Absolute Neuts (auto) Absolute Nucleated RBC Nucleated RBC % (auto) VBG pH VBG pCO2 VBG pO2 VBG HCO3 VBG O2 Saturation VBG Base Excess Sodium 130 L Potassium 4.6 D Chloride 98 Carbon Dioxide 12 L Anion Gap 25 H BUN 24 H Creatinine 1.66 H Estim Creat Clear Calc 41.8 Estimated GFR 43 POC Glucose 563 H* Random Glucose 471 H* Lactic Acid Calcium 8.7 D Phosphorus Magnesium Total Bilirubin AST ALT Alkaline Phosphatase Total Protein Albumin Urine Color Yellow Urine Appearance Clear Urine pH 5.5 Ur Specific [place] 1.025 Urine Protein 100 (2+) H Urine Glucose (UA) >=1000 H Urine Ketones 80 Urine Blood Trace H Urine Nitrite Negative Ur Leukocyte Esterase Negative Urine RBC 0-2 Urine WBC 0-5 Ur Squamous Epith Cells 0-2 Urine Bacteria None Seen Hyaline Casts 0-2 04/05/23 04/05/23 04/05/23 19:57 20:13 20:16 WBC RBC Hgb Hct MCV MCH MCHC RDW Plt Count MPV Immature Gran % (Auto) Neut % (Auto) Lymph % (Auto) [place] % (Auto) Eos % (Auto) Baso % (Auto) Lymph # (Auto) [place] # (Auto) Eos # (Auto) Baso # (Auto) Abs Immat Gran (auto) Absolute Neuts (auto) Absolute Nucleated RBC Nucleated RBC % (auto) VBG pH 7.35 VBG pCO2 17 VBG pO2 214 VBG HCO3 10 L VBG O2 Saturation 100.0 VBG Base Excess -12.9 Sodium 131 L Potassium 4.0 Chloride 101 Carbon Dioxide 10 L* Anion Gap 24 H BUN 25 H Creatinine 1.78 H Estim Creat Clear Calc 39.4 Estimated GFR 40 POC Glucose 516 H* Random Glucose 526 H* Lactic Acid Calcium 8.5 Phosphorus Magnesium Total Bilirubin AST ALT Alkaline Phosphatase Total Protein Albumin Urine Color Urine Appearance Urine pH Ur Specific [place] Urine Protein Urine Glucose (UA) Urine Ketones Urine Blood Urine Nitrite Ur Leukocyte Esterase Urine RBC Urine WBC Ur Squamous Epith Cells Urine Bacteria Hyaline Casts 04/05/23 04/05/23 04/05/23 21:08 22:04 22:41 WBC RBC Hgb Hct MCV MCH MCHC RDW Plt Count MPV Immature Gran % (Auto) Neut % (Auto) Lymph % (Auto) [place] % (Auto) Eos % (Auto) Baso % (Auto) Lymph # (Auto) [place] # (Auto) Eos # (Auto) Baso # (Auto) Abs Immat Gran (auto) Absolute Neuts (auto) Absolute Nucleated RBC Nucleated RBC % (auto) VBG pH VBG pCO2 VBG pO2 VBG HCO3 VBG O2 Saturation VBG Base Excess Sodium Potassium Chloride Carbon Dioxide Anion Gap BUN Creatinine Estim Creat Clear Calc Estimated GFR POC Glucose 424 H* 377 H* Random Glucose Lactic Acid 1.5 Calcium Phosphorus Magnesium Total Bilirubin AST ALT Alkaline Phosphatase Total Protein Albumin Urine Color Urine Appearance Urine pH Ur Specific [place] Urine Protein Urine Glucose (UA) Urine Ketones Urine Blood Urine Nitrite Ur Leukocyte Esterase Urine RBC Urine WBC Ur Squamous Epith Cells Urine Bacteria Hyaline Casts 04/05/23 04/05/23 04/06/23 23:18 23:59 00:35 WBC RBC Hgb Hct MCV MCH MCHC RDW Plt Count MPV Immature Gran % (Auto) Neut % (Auto) Lymph % (Auto) [place] % (Auto) Eos % (Auto) Baso % (Auto) Lymph # (Auto) [place] # (Auto) Eos # (Auto) Baso # (Auto) Abs Immat Gran (auto) Absolute Neuts (auto) Absolute Nucleated RBC Nucleated RBC % (auto) VBG pH 7.38 VBG pCO2 25 VBG pO2 74 VBG HCO3 15 L VBG O2 Saturation 96.0 VBG Base Excess -7.7 Sodium Potassium Chloride Carbon Dioxide Anion Gap BUN Creatinine Estim Creat Clear Calc Estimated GFR POC Glucose 282 H 311 H Random Glucose Lactic Acid Calcium Phosphorus Magnesium Total Bilirubin AST ALT Alkaline Phosphatase Total Protein Albumin Urine Color Urine Appearance Urine pH Ur Specific [place] Urine Protein Urine Glucose (UA) Urine Ketones Urine Blood Urine Nitrite Ur Leukocyte Esterase Urine RBC Urine WBC Ur Squamous Epith Cells Urine Bacteria Hyaline Casts 04/06/23 04/06/23 04/06/23 00:39 02:14 03:04 WBC RBC Hgb Hct MCV MCH MCHC RDW Plt Count MPV Immature Gran % (Auto) Neut % (Auto) Lymph % (Auto) [place] % (Auto) Eos % (Auto) Baso % (Auto) Lymph # (Auto) [place] # (Auto) Eos # (Auto) Baso # (Auto) Abs Immat Gran (auto) Absolute Neuts (auto) Absolute Nucleated RBC Nucleated RBC % (auto) VBG pH VBG pCO2 VBG pO2 VBG HCO3 VBG O2 Saturation VBG Base Excess Sodium 132 L Potassium 3.6 Chloride 103 Carbon Dioxide 16 L Anion Gap 17 BUN 24 H Creatinine 1.61 H Estim Creat Clear Calc 43.6 Estimated GFR 45 POC Glucose 214 H 155 H Random Glucose 296 H Lactic Acid Calcium 8.5 Phosphorus Magnesium Total Bilirubin AST ALT Alkaline Phosphatase Total Protein Albumin Urine Color Urine Appearance Urine pH Ur Specific [place] Urine Protein Urine Glucose (UA) Urine Ketones Urine Blood Urine Nitrite Ur Leukocyte Esterase Urine RBC Urine WBC Ur Squamous Epith Cells Urine Bacteria Hyaline Casts 04/06/23 04/06/23 04/06/23 04:04 04:34 04:34 WBC 14.4 H RBC 3.73 L Hgb 11.3 L Hct 32.6 L MCV 87.4 MCH 30.3 MCHC 34.7 RDW 11.9 Plt Count 270 MPV 10.5 Immature Gran % (Auto) 0.6 H Neut % (Auto) 84.6 H Lymph % (Auto) 5.1 L [place] % (Auto) 9.4 Eos % (Auto) 0.1 Baso % (Auto) 0.2 Lymph # (Auto) 0.7 L [place] # (Auto) 1.4 H Eos # (Auto) 0.0 Baso # (Auto) 0.0 Abs Immat Gran (auto) 0.08 H Absolute Neuts (auto) 12.2 H Absolute Nucleated RBC 0.000 Nucleated RBC % (auto) 0.0 VBG pH VBG pCO2 VBG pO2 VBG HCO3 VBG O2 Saturation VBG Base Excess Sodium 136 Potassium 3.3 Chloride 106 Carbon Dioxide 21 L Anion Gap 12 BUN 21 H Creatinine 1.38 Estim Creat Clear Calc 50.9 Estimated GFR 53 POC Glucose 128 H Random Glucose 128 H Lactic Acid Calcium 8.6 Phosphorus 1.2 L Magnesium 2.0 Total Bilirubin 0.2 AST 11 ALT 9 Alkaline Phosphatase 81 Total Protein 6.4 L Albumin 3.2 L Urine Color Urine Appearance Urine pH Ur Specific [place] Urine Protein Urine Glucose (UA) Urine Ketones Urine Blood Urine Nitrite Ur Leukocyte Esterase Urine RBC Urine WBC Ur Squamous Epith Cells Urine Bacteria Hyaline Casts 04/06/23 04/06/23 04/06/23 04:34 04:48 05:04 WBC RBC Hgb Hct MCV MCH MCHC RDW Plt Count MPV Immature Gran % (Auto) Neut % (Auto) Lymph % (Auto) [place] % (Auto) Eos % (Auto) Baso % (Auto) Lymph # (Auto) [place] # (Auto) Eos # (Auto) Baso # (Auto) Abs Immat Gran (auto) Absolute Neuts (auto) Absolute Nucleated RBC Nucleated RBC % (auto) VBG pH 7.49 H VBG pCO2 29 VBG pO2 103 VBG HCO3 22 VBG O2 Saturation 99.0 VBG Base Excess 0.5 Sodium Potassium Chloride Carbon Dioxide Anion Gap BUN Creatinine Estim Creat Clear Calc Estimated GFR POC Glucose 118 H Random Glucose Lactic Acid Calcium Phosphorus Magnesium Total Bilirubin AST ALT Alkaline Phosphatase Total Protein Albumin Cancelled Urine Color Urine Appearance Urine pH Ur Specific [place] Urine Protein Urine Glucose (UA) Urine Ketones Urine Blood Urine Nitrite Ur Leukocyte Esterase Urine RBC Urine WBC Ur Squamous Epith Cells Urine Bacteria Hyaline Casts 04/06/23 04/06/23 04/06/23 06:03 07:10 08:03 WBC RBC Hgb Hct MCV MCH MCHC RDW Plt Count MPV Immature Gran % (Auto) Neut % (Auto) Lymph % (Auto) [place] % (Auto) Eos % (Auto) Baso % (Auto) Lymph # (Auto) [place] # (Auto) Eos # (Auto) Baso # (Auto) Abs Immat Gran (auto) Absolute Neuts (auto) Absolute Nucleated RBC Nucleated RBC % (auto) VBG pH VBG pCO2 VBG pO2 VBG HCO3 VBG O2 Saturation VBG Base Excess Sodium Potassium Chloride Carbon Dioxide Anion Gap BUN Creatinine Estim Creat Clear Calc Estimated GFR POC Glucose 115 120 H 140 H Random Glucose Lactic Acid Calcium Phosphorus Magnesium Total Bilirubin AST ALT Alkaline Phosphatase Total Protein Albumin Urine Color Urine Appearance Urine pH Ur Specific [place] Urine Protein Urine Glucose (UA) Urine Ketones Urine Blood Urine Nitrite Ur Leukocyte Esterase Urine RBC Urine WBC Ur Squamous Epith Cells Urine Bacteria Hyaline Casts 04/06/23 04/06/23 04/06/23 09:08 10:54 11:42 WBC RBC Hgb Hct MCV MCH MCHC RDW Plt Count MPV Immature Gran % (Auto) Neut % (Auto) Lymph % (Auto) [place] % (Auto) Eos % (Auto) Baso % (Auto) Lymph # (Auto) [place] # (Auto) Eos # (Auto) Baso # (Auto) Abs Immat Gran (auto) Absolute Neuts (auto) Absolute Nucleated RBC Nucleated RBC % (auto) VBG pH VBG pCO2 VBG pO2 VBG HCO3 VBG O2 Saturation VBG Base Excess Sodium 134 L Potassium 3.5 Chloride 101 Carbon Dioxide 20 L Anion Gap 17 BUN 16 Creatinine 1.41 H Estim Creat Clear Calc 46.4 Estimated GFR 52 POC Glucose 158 H 292 H Random Glucose 288 H Lactic Acid Calcium 8.9 Phosphorus Magnesium Total Bilirubin AST ALT Alkaline Phosphatase Total Protein Albumin Urine Color Urine Appearance Urine pH Ur Specific [place] Urine Protein Urine Glucose (UA) Urine Ketones Urine Blood Urine Nitrite Ur Leukocyte Esterase Urine RBC Urine WBC Ur Squamous Epith Cells Urine Bacteria Hyaline Casts Microbiology Microbiology Results: Microbiology 04/05/23 10:51 Blood - Venous Blood Culture - Final Strep agalactiae (Grp B) Progress Note: A&P Assessment and plan (1) DKA (diabetic ketoacidosis): Status: Acute (2) Type 1 diabetes: Status: Acute (3) Colitis: Status: Acute (4) SIMONE (acute kidney injury): Status: Acute Plan Assessment: 57-year-old gentleman with underlying type 1 diabetes mellitus unable to get his insulin for 4 days admitted with diabetic ketoacidosis and mild colitis Plan: Neuro: No acute issues. Cardiac: No acute issues. Pulmonary: No acute issues. Renal: acute renal failure secondary to underlying diabetic ketoacidosis, improving. Non oliguric. Continue to monitor renal indices and urine output. Endo: Diabetes ketoacidosis, titrated off insulin drip. Continue on subcutaneous insulin. GI: CT scan with evidence of colitis, continue on Zosyn. ID: No acute issues Heme/Onc: No acute issues. Psych: No acute issues. Miscellaneous: No acute issues. Prophylaxis: Heparin Diet: full liquid Quality Stroke Does the patient have a stroke diagnosis?: No VTE Prior VTE?: No VTE Risk Level:: Medical - moderate - high VTE Device Contraindication: N/A - Device Ordered VTE Drug Contraindication: N/A - Med Ordered
--- NOTE | 2023-04-06 14:36 | PM.EVENT ---
Event Note Date of Service: 04/08/23 Event Note: This patient is seen and examined -please see icu note. seen and examined -no new c/o. Physical exam and assessment and plan as per icu note. GI: Soft, nondistended, no rebound or guarding, has mild epigastric discomfort upon deep palpation. In addition patient has some epigastric discomfort and also had nausea vomiting -no dorothy blood, question coffee-ground keep npo, lidocaine patch ivf ppi h/h monitering Time Spent With Patient Time: Total time managing care of this patient today ____ minutes.
--- NOTE | 2023-04-06 15:19 | HO.WOUNDCONS ---
History of Present Illness Data of Consult Service Date: 04/06/23 Requesting physician: Rachael Hartmann Primary Care Provider: Bassem Major MD [facility] Reason for consult: diabetic foot ulcer right great toe [id number]: Patient feels ill, nausea and vomiting. Admitted yesterday for DKA, colitis on IV Zosyn. Longstanding diabetes I history with insulin pump. Apparently, did not take insulin for weeks prior to this admission. History of osteomyelitis per documentation but do not seeing supporting data on this interface. He feels ill right now and does not wish to share details. One set of blood cultures growing strep species, follow up cultures are pending. Review of Systems Review of Systems: Yes Unobtainable due to mental condition [facility] Medical History (Updated 04/06/23 @ 15:52 by MARILYN Berry) Type 1 diabetes Family History (Updated 04/05/23 @ 13:43 by CEDRIC Elkins) Mother Diabetes mellitus Social History Household Members: Family Household Members Other:: 1 Housing: Apartment Do you presently have visiting nurse or other home services: No Alcohol intake: current Alcohol intake frequency: a few times a month Alcohol type: hard liquor Patient Tobacco Use Status: Current everyday Tobacco user Tobacco use type: Cigarette Cigarette Packs Per Day: 0.5 Cigarettes Per Day: 8 Years Smoked: 40 e-Cigarette/Vaping Use: Never Used Meds Allergies Allergy/AdvReac Type Severity Reaction Status Date / Time No Known Drug Allergies Allergy Mild NONE Verified 04/05/23 08:03 [NO KNOWN DRUG ALLERGIES] atorvastatin AdvReac Intermediate Muscle Verified 04/05/23 12:09 cramps Active Medications: Current Medications Dextrose (Dextrose 50 % 25 Gm/50 Ml Syringe) 25 gm IVPUSH Q15M PRN; Protocol PRN Reason: per Hypoglycemia Standing Ord. Dextrose (Dextrose 50 % 25 Gm/50 Ml Syringe) 25 gm IVPUSH Q30M PRN PRN Reason: BG < 70 Fentanyl (Fentanyl Citrate/Pf 100 Mcg/2 Ml Vial) 25 mcg IVPUSH Q3H PRN; Protocol PRN Reason: Pain, Moderate(Pain Scale 4-6) Glucose (Glucose Gel 15 Gm Gel..Gram.) 15 gm PO Q15M PRN; Protocol PRN Reason: per Hypoglycemia Standing Ord. Heparin Sodium (Porcine) (Heparin Sodium,Porcine 5,000 Unit/Ml Vial) 5,000 unit SUBCUT Q12H [facility] Last Admin: 04/06/23 03:02 Dose: 5,000 unit Piperacillin Sod/Tazobactam (Sod 3.375 gm/ Sodium Chloride) 50 mls @ 100 mls/hr IV Q6H [facility] Last Infusion: 04/06/23 12:29 Dose: Infused Potassium Phosphate (Kphos) 15 mmol in 250 mls @ 62.5 mls/hr IV Q4H [facility] Stop: 04/06/23 16:29 Last Admin: 04/06/23 14:51 Dose: 62.5 mls/hr Insulin Glargine (Insulin Glargine,Hum.Rec.Anlog 100 Unit/Ml 10 Ml Vial) 15 unit SUBCUT DAILY [facility] Last Admin: 04/06/23 09:55 Dose: 15 unit Insulin Human Lispro (Insulin Lispro 100 Unit/Ml 3 Ml Vial) 0 unit SUBCUT QIDACHS [facility]; Protocol Last Admin: 04/06/23 12:16 Dose: 6 unit Metoclopramide HCl (Metoclopramide Hcl 10 Mg/2 Ml Vial) 10 mg IVPUSH Q4H PRN PRN Reason: Nausea Last Admin: 04/06/23 09:52 Dose: 10 mg Ondansetron HCl (Ondansetron Hcl 4 Mg/2 Ml Vial) 4 mg IVPUSH Q8H PRN PRN Reason: Nausea and Vomiting Last Admin: 04/06/23 06:36 Dose: 4 mg Sodium Chloride (0.9 % Sodium Chloride Flush 3 Ml Syringe) 3 ml IVFLUSH QSHIFT [facility] Last Admin: 04/06/23 09:56 Dose: 3 ml Home Medications Medication Instructions Recorded Confirmed Last Taken Type insulin aspart U-100 100 unit/mL See Rx Instructions .Route .COMPLEX 04/05/23 04/05/23 03/31/23 History subcutaneous solution (Novolog U-100 Insulin aspart) Physical Exam Vital Signs and Narrative: Vital Signs: Last Vital Signs Temp 99.0 F 04/06/23 12:00 Pulse 83 04/06/23 13:00 Resp 13 04/06/23 13:00 BP 172/88 H 04/06/23 13:00 Pulse Ox 97 04/06/23 13:00 O2 Del Method Room Air 04/06/23 13:00 BMI result Body Mass Index 19.2 Bounding dorsalis pedis pulses bilaterally. Right medial great toe ulcer is not open. Appears to be enclosed hematoma/blister, at risk for rupture. Fluctuanct. Grossly about 1 x 1.5 cm in size. Scant surrounding edema without warmth or streaking. Onchomycosis of the toenail is observed. Bulbar appearance could be consistent with history of osteomyelitis. No redness associated with previously placed surgical pen marking, purple in color. Results Labs 04/06/23 04:34 04/06/23 10:54 Labs: Laboratory Results - last 24 hr 04/05/23 04/05/23 04/05/23 15:54 17:36 19:00 MCV MCH MCHC RDW Plt Count MPV Immature Gran % (Auto) Neut % (Auto) Lymph % (Auto) [place] % (Auto) Eos % (Auto) Baso % (Auto) Lymph # (Auto) [place] # (Auto) Eos # (Auto) Baso # (Auto) Abs Immat Gran (auto) Absolute Neuts (auto) Absolute Nucleated RBC Nucleated RBC % (auto) VBG pH VBG pCO2 VBG pO2 VBG HCO3 VBG O2 Saturation VBG Base Excess Anion Gap 25 H Estim Creat Clear Calc 41.8 Estimated GFR 43 POC Glucose 563 H* Random Glucose 471 H* Lactic Acid Calcium 8.7 D Phosphorus Magnesium Total Bilirubin AST ALT Alkaline Phosphatase Total Protein Albumin Urine Color Yellow Urine Appearance Clear Urine pH 5.5 Ur Specific [place] 1.025 Urine Protein 100 (2+) H Urine Glucose (UA) >=1000 H Urine Ketones 80 Urine Blood Trace H Urine Nitrite Negative Ur Leukocyte Esterase Negative Urine RBC 0-2 Urine WBC 0-5 Ur Squamous Epith Cells 0-2 Urine Bacteria None Seen Hyaline Casts 0-2 04/05/23 04/05/23 04/05/23 19:57 20:13 20:16 MCV MCH MCHC RDW Plt Count MPV Immature Gran % (Auto) Neut % (Auto) Lymph % (Auto) [place] % (Auto) Eos % (Auto) Baso % (Auto) Lymph # (Auto) [place] # (Auto) Eos # (Auto) Baso # (Auto) Abs Immat Gran (auto) Absolute Neuts (auto) Absolute Nucleated RBC Nucleated RBC % (auto) VBG pH 7.35 VBG pCO2 17 VBG pO2 214 VBG HCO3 10 L VBG O2 Saturation 100.0 VBG Base Excess -12.9 Anion Gap 24 H Estim Creat Clear Calc 39.4 Estimated GFR 40 POC Glucose 516 H* Random Glucose 526 H* Lactic Acid Calcium 8.5 Phosphorus Magnesium Total Bilirubin AST ALT Alkaline Phosphatase Total Protein Albumin Urine Color Urine Appearance Urine pH Ur Specific [place] Urine Protein Urine Glucose (UA) Urine Ketones Urine Blood Urine Nitrite Ur Leukocyte Esterase Urine RBC Urine WBC Ur Squamous Epith Cells Urine Bacteria Hyaline Casts 04/05/23 04/05/23 04/05/23 21:08 22:04 22:41 MCV MCH MCHC RDW Plt Count MPV Immature Gran % (Auto) Neut % (Auto) Lymph % (Auto) [place] % (Auto) Eos % (Auto) Baso % (Auto) Lymph # (Auto) [place] # (Auto) Eos # (Auto) Baso # (Auto) Abs Immat Gran (auto) Absolute Neuts (auto) Absolute Nucleated RBC Nucleated RBC % (auto) VBG pH VBG pCO2 VBG pO2 VBG HCO3 VBG O2 Saturation VBG Base Excess Anion Gap Estim Creat Clear Calc Estimated GFR POC Glucose 424 H* 377 H* Random Glucose Lactic Acid 1.5 Calcium Phosphorus Magnesium Total Bilirubin AST ALT Alkaline Phosphatase Total Protein Albumin Urine Color Urine Appearance Urine pH Ur Specific [place] Urine Protein Urine Glucose (UA) Urine Ketones Urine Blood Urine Nitrite Ur Leukocyte Esterase Urine RBC Urine WBC Ur Squamous Epith Cells Urine Bacteria Hyaline Casts 04/05/23 04/05/23 04/06/23 23:18 23:59 00:35 MCV MCH MCHC RDW Plt Count MPV Immature Gran % (Auto) Neut % (Auto) Lymph % (Auto) [place] % (Auto) Eos % (Auto) Baso % (Auto) Lymph # (Auto) [place] # (Auto) Eos # (Auto) Baso # (Auto) Abs Immat Gran (auto) Absolute Neuts (auto) Absolute Nucleated RBC Nucleated RBC % (auto) VBG pH 7.38 VBG pCO2 25 VBG pO2 74 VBG HCO3 15 L VBG O2 Saturation 96.0 VBG Base Excess -7.7 Anion Gap Estim Creat Clear Calc Estimated GFR POC Glucose 282 H 311 H Random Glucose Lactic Acid Calcium Phosphorus Magnesium Total Bilirubin AST ALT Alkaline Phosphatase Total Protein Albumin Urine Color Urine Appearance Urine pH Ur Specific [place] Urine Protein Urine Glucose (UA) Urine Ketones Urine Blood Urine Nitrite Ur Leukocyte Esterase Urine RBC Urine WBC Ur Squamous Epith Cells Urine Bacteria Hyaline Casts 04/06/23 04/06/23 04/06/23 00:39 02:14 03:04 MCV MCH MCHC RDW Plt Count MPV Immature Gran % (Auto) Neut % (Auto) Lymph % (Auto) [place] % (Auto) Eos % (Auto) Baso % (Auto) Lymph # (Auto) [place] # (Auto) Eos # (Auto) Baso # (Auto) Abs Immat Gran (auto) Absolute Neuts (auto) Absolute Nucleated RBC Nucleated RBC % (auto) VBG pH VBG pCO2 VBG pO2 VBG HCO3 VBG O2 Saturation VBG Base Excess Anion Gap 17 Estim Creat Clear Calc 43.6 Estimated GFR 45 POC Glucose 214 H 155 H Random Glucose 296 H Lactic Acid Calcium 8.5 Phosphorus Magnesium Total Bilirubin AST ALT Alkaline Phosphatase Total Protein Albumin Urine Color Urine Appearance Urine pH Ur Specific [place] Urine Protein Urine Glucose (UA) Urine Ketones Urine Blood Urine Nitrite Ur Leukocyte Esterase Urine RBC Urine WBC Ur Squamous Epith Cells Urine Bacteria Hyaline Casts 04/06/23 04/06/23 04/06/23 04:04 04:34 04:34 MCV 87.4 MCH 30.3 MCHC 34.7 RDW 11.9 Plt Count 270 MPV 10.5 Immature Gran % (Auto) 0.6 H Neut % (Auto) 84.6 H Lymph % (Auto) 5.1 L [place] % (Auto) 9.4 Eos % (Auto) 0.1 Baso % (Auto) 0.2 Lymph # (Auto) 0.7 L [place] # (Auto) 1.4 H Eos # (Auto) 0.0 Baso # (Auto) 0.0 Abs Immat Gran (auto) 0.08 H Absolute Neuts (auto) 12.2 H Absolute Nucleated RBC 0.000 Nucleated RBC % (auto) 0.0 VBG pH VBG pCO2 VBG pO2 VBG HCO3 VBG O2 Saturation VBG Base Excess Anion Gap 12 Estim Creat Clear Calc 50.9 Estimated GFR 53 POC Glucose 128 H Random Glucose 128 H Lactic Acid Calcium 8.6 Phosphorus 1.2 L Magnesium 2.0 Total Bilirubin 0.2 AST 11 ALT 9 Alkaline Phosphatase 81 Total Protein 6.4 L Albumin 3.2 L Urine Color Urine Appearance Urine pH Ur Specific [place] Urine Protein Urine Glucose (UA) Urine Ketones Urine Blood Urine Nitrite Ur Leukocyte Esterase Urine RBC Urine WBC Ur Squamous Epith Cells Urine Bacteria Hyaline Casts 04/06/23 04/06/23 04/06/23 04:34 04:48 05:04 MCV MCH MCHC RDW Plt Count MPV Immature Gran % (Auto) Neut % (Auto) Lymph % (Auto) [place] % (Auto) Eos % (Auto) Baso % (Auto) Lymph # (Auto) [place] # (Auto) Eos # (Auto) Baso # (Auto) Abs Immat Gran (auto) Absolute Neuts (auto) Absolute Nucleated RBC Nucleated RBC % (auto) VBG pH 7.49 H VBG pCO2 29 VBG pO2 103 VBG HCO3 22 VBG O2 Saturation 99.0 VBG Base Excess 0.5 Anion Gap Estim Creat Clear Calc Estimated GFR POC Glucose 118 H Random Glucose Lactic Acid Calcium Phosphorus Magnesium Total Bilirubin AST ALT Alkaline Phosphatase Total Protein Albumin Cancelled Urine Color Urine Appearance Urine pH Ur Specific [place] Urine Protein Urine Glucose (UA) Urine Ketones Urine Blood Urine Nitrite Ur Leukocyte Esterase Urine RBC Urine WBC Ur Squamous Epith Cells Urine Bacteria Hyaline Casts 04/06/23 04/06/23 04/06/23 06:03 07:10 08:03 MCV MCH MCHC RDW Plt Count MPV Immature Gran % (Auto) Neut % (Auto) Lymph % (Auto) [place] % (Auto) Eos % (Auto) Baso % (Auto) Lymph # (Auto) [place] # (Auto) Eos # (Auto) Baso # (Auto) Abs Immat Gran (auto) Absolute Neuts (auto) Absolute Nucleated RBC Nucleated RBC % (auto) VBG pH VBG pCO2 VBG pO2 VBG HCO3 VBG O2 Saturation VBG Base Excess Anion Gap Estim Creat Clear Calc Estimated GFR POC Glucose 115 120 H 140 H Random Glucose Lactic Acid Calcium Phosphorus Magnesium Total Bilirubin AST ALT Alkaline Phosphatase Total Protein Albumin Urine Color Urine Appearance Urine pH Ur Specific [place] Urine Protein Urine Glucose (UA) Urine Ketones Urine Blood Urine Nitrite Ur Leukocyte Esterase Urine RBC Urine WBC Ur Squamous Epith Cells Urine Bacteria Hyaline Casts 04/06/23 04/06/23 04/06/23 09:08 10:54 11:42 MCV MCH MCHC RDW Plt Count MPV Immature Gran % (Auto) Neut % (Auto) Lymph % (Auto) [place] % (Auto) Eos % (Auto) Baso % (Auto) Lymph # (Auto) [place] # (Auto) Eos # (Auto) Baso # (Auto) Abs Immat Gran (auto) Absolute Neuts (auto) Absolute Nucleated RBC Nucleated RBC % (auto) VBG pH VBG pCO2 VBG pO2 VBG HCO3 VBG O2 Saturation VBG Base Excess Anion Gap 17 Estim Creat Clear Calc 46.4 Estimated GFR 52 POC Glucose 158 H 292 H Random Glucose 288 H Lactic Acid Calcium 8.9 Phosphorus Magnesium Total Bilirubin AST ALT Alkaline Phosphatase Total Protein Albumin Urine Color Urine Appearance Urine pH Ur Specific [place] Urine Protein Urine Glucose (UA) Urine Ketones Urine Blood Urine Nitrite Ur Leukocyte Esterase Urine RBC Urine WBC Ur Squamous Epith Cells Urine Bacteria Hyaline Casts Assessment and Plan (1) Type 2 diabetes mellitus with foot ulcer: Status: Acute Plan 57 year old male with DM1 unable to take insulin for weeks prior to admission, question issue with pump, DKA and colitis noted. Blister on medial toe is not open but is at risk for rupture. Use Betadine paint topically twice daily. Consider using folded gauze between the 1st and 2nd digit when ambulatory. Will need outpatient evaluation of footwear. Send the patient to outpatient wound clinic if desired. Consider x-ray of the right foot prior to the patient's discharge to rule out acute osteomyelitis, or more advanced imaging depending on clinical picture. Time Spent With Patient Time: Total time managing care of this patient today ____ minutes.
--- NOTE | 2023-04-06 17:12 | PC.NURSE ---
Assumed care at 07:00. Patient alert and oriented. Patient is somewhat withdrawn with impaired coping, potentially limiting assessment. Compliant with care, but hides under blankets. Patient on insulin gtt, vomiting numerous times coffee-ground emesis, MD notified. Patient had already had zofran, and IVP reglan new order administered with effect. Patient incontinent of large amount of greenish stool after orders for C Diff stool and GI panel discontinued by MD, new order for C.Diff stool, patient placed on Contact precautions for rule out C.Diff. Patient with headache he described as migraine, some photosensitivity, described as migraine bilateral head anterior and posterior dull ache and 7/10, rates abdominal pain with positive abdominal tenderness at epigastric area, pain rated as 3/10, was NPO, diet advanced to full liquids, tolerated, but later developed another episode of coffee-ground emesis, MD notified. Patient voiding in the urinal pale yellow urine. Patient with wound on right great toe, appears to be nonhealing ulcer, sangineous drainage in large amount from toe, discussed with MD and MD held dose of prophylactic heparin due to sanguineous drainage. Toe washed and dressed with xeroform, foam pad, and kerlix. Wound consult already has been ordered. Patient educated about diabetic foot care. Patient's mother in and descibed patient's recent prolonged treatment at [facility] for oseomylitis he reports of his left foot, which is now apparently healed, and which had required home antibiotics. Patient now with wound on right foot, discussed with MD who says he will check in to [facility] records about this. Patient given more IVP reglan with effect in afternoon. Report given to PARTHA Barrientos, and patient transferred to room 444 on 4th floor.
[2023-04-06 17:19] LABS: Glucose, Whole Blood 352 mg/dL (60-115)
[2023-04-06] MEDS: Pantoprazole Sodium 40 MG/10 ML VIAL IVPUSH (17:25)
[2023-04-06 19:13] LABS: Hematocrit 33.1 % (42.0-52.0); Hemoglobin 11.6 g/dl (14.0-18.0)
[2023-04-06] MEDS: Lactated Ringers 1,000 ML 100 ML IVCONT (19:47)
[2023-04-06 20:52] LABS: Glucose, Whole Blood 199 mg/dL (60-115)
[2023-04-06 22:44] LABS: Glucose, Whole Blood 219 mg/dL (60-115)
[2023-04-06] MEDS: Insulin Glargine,Hum.rec.anlog 100 UNIT/ML 10 ML VIAL 10 UNIT SUBCUT (22:49)
--- NOTE | 2023-04-06 22:53 | HO.SKINPHOTO ---
Addendum entered by Anabell Kaur RN 04/06/23 22:54: RIGHT GREAT TOE BLOOD BLISTER RIGHT GREAT TOE DIABETIC ULCER RIGHT GREAT TOERED AND SWOLLEN, ANTERIOR VIEW Original Note: Location: Category: Stage: Length: Width: Depth: cm Location: Category: Stage: Length: Width: Depth: cm Location: Category: Stage: Length: Width: Depth: cm Location: Category: Stage: Length: Width: Depth: cm Location: Category: Stage: Length: Width: Depth: cm Location: Category: Stage: Length: Width: Depth: cm
[2023-04-06 23:15] LABS: Hematocrit 33.2 % (42.0-52.0); Hemoglobin 11.8 g/dl (14.0-18.0)
[2023-04-07 02:09] LABS: Glucose, Whole Blood 177 mg/dL (60-115)
[2023-04-07 04:00] VITALS: BP 146/77; PULSE 120; RESP 16; TEMP 36.7; O2SAT 93
[2023-04-07 05:49] LABS: MANUAL DIFF FLAG NO
[2023-04-07 05:52] LABS: Basophils Percent Auto 0.2 % (0-2); Eosinophils Percent Auto 0.1 % (0-4); Hematocrit 33.2 % (42.0-52.0); Hemoglobin 11.6 g/dl (14.0-18.0); Imm Gran Abs Auto 0.11 X10*3/uL (0.00-0.03); Imm Gran Pct Auto 0.7 % (0.0-0.4); Lymphocytes Absolute Auto 0.7 X10*3/uL (1.2-4.9); Lymphocytes Percent Auto 4.6 % (20-40); Mean Corpuscular HGB Conc 34.9 g/dl (31.0-36.0); Mean Corpuscular Hemoglobin 30.1 pg (27.0-33.0); Mean Platelet Volume 10.2 fL (9.4-12.4); Monocytes Absolute Auto 1.4 X10*3/uL (0.1-1.2); Monocytes Percent Auto 9.1 % (2-11); Neutrophils Absolute Auto 12.7 x10*3/uL (2.0-8.3); Neutrophils Percent Auto 85.3 % (45-73); Platelet Count 296 X10*3/uL (160-400); Red Blood Count 3.86 X10*6/uL (4.60-5.80); Red Cell Distribution Width 11.9 % (11.0-16.0); White Blood Count 14.9 X10*3/uL (4.8-10.8)
[2023-04-07] MEDS: Piperacillin Sodium/Tazobactam 3.375 GM in 0.9 % Sodium Chloride 50 ML IV ×4 (06:11→23:49)
[2023-04-07] MEDS: Metoclopramide HCl 10 MG/2 ML VIAL IVPUSH ×2 (06:11→15:16)
[2023-04-07] MEDS: Pantoprazole Sodium 40 MG/10 ML VIAL IVPUSH (06:11)
[2023-04-07 06:18] LABS: Albumin Level 3.4 g/dL (3.5-5.0); Anion Gap 18 (12-20); Blood Urea Nitrogen 10 mg/dL (9-16); Calcium 8.5 mg/dL (8.4-10.2); Carbon Dioxide 23 mmol/L (22-29); Chloride 96 mmol/L (96-108); Creatinine Clr Calc Pharmacy 54.1; Estimated Glomerular Filt Rate > 60; Glucose Random 211 mg/dL (60-115); Magnesium 1.6 mg/dL (1.6-2.6); Phosphorus 1.8 mg/dL (2.7-4.5); Potassium 2.9 mmol/L (3.3-5.1); Sodium 134 mmol/L (135-145)
[2023-04-07] MEDS: Lactated Ringers 1,000 ML 100 ML IVCONT ×2 (06:39→15:13)
[2023-04-07 07:06] LABS: Glucose, Whole Blood 207 mg/dL (60-115)
[2023-04-07 07:23] VITALS: BP 147/78; PULSE 86; RESP 18; TEMP 36.9; O2SAT 95
--- NOTE | 2023-04-07 08:28 | MHC.CM.PN ---
CM met with Patient at bedside and attempted to address IMM with him but Patient appeared upset and swearing saying that he wants nothing to do with Medicare because Medicare has screwed him up in the past. CM attempted to clarify X2 but Patient would not allow CM to speak. Original IMM left with Patient and a copy has been placed on the chart.Patient lives in a house with his Mother/HCP and he required no DME [employer]. Patient has [employer] services for transportation and home/resume said services is the tentative plan. CM has initiated and will follow for dc planning. PCP is Dr. Bassem Major. Conversation was brief between Patient and CM; Patient responded hesitantly to questions and provided very little information.
[2023-04-07] MEDS: Insulin Lispro 100 UNIT/ML 3 ML VIAL SUBCUT (08:37)
--- NOTE | 2023-04-07 09:00 | P.CNGI_ITS ---
History of Present Illness Data of Consult Service Date: 04/07/23 Requesting physician: Karen Gr Primary Care Provider: Bassem Major MD HPI Reason for consult: coffee ground emesis 57-year-old male with a past medical history significant for insulin-dependent type 1 diabetes mellitus on an insulin pump who I am seeing for assessment for coffee ground emesis. He initially presented with complaints of nausea, dark colored vomiting, diarrhea and severe 10/10 epigastric abdominal pain, without radiaiton ongoing for the past 4 days after running out of insulin. Nothing was relieving his symptoms, and food made the symptoms incl pain worse He also noted dark stools, for 4 days with worsening reflux symptoms but reports since been in hopsital nausea has improved and stools are now brown. He denies taking drugs, alcohol or nsaids. He feels the abdominal sherry has improved as well. Since admission been given PPI, fluids and insulin regimen for DKA protocol ? LABS: WBC 16.8, Hgb & Hct 11.6/33.6, CMP:Na 129, carbon dioxide 15, anion gap 22, BUN/creatinine 28/1.8, initial random glucose 375 -downtrending, magnesium 1.8, beta hydroxybutyrate 3.7, ? Urinalysis negativen.? Respiratory virus panel negative for COVID-19, influenza a/B.? IMAGING: CT abdomen and pelvis without contrast:? ? mild colitis of the distal colon Review of Systems Review of Systems: Constitutional : No Weight loss, No Fever, No Chills ENT/Mouth : No sore throat, No Rhinorrhea Eyes: No Swelling, No Redness Cardiovascular : No Chest Pain, No SOB, No Edema Respiratory : No Cough, No Sputum, No Wheezing Gastrointestinal : see HPI Genitourinary : NO Dysuria, No Urinary Frequency, No Hematuria, No Urgency Musculoskeletal : No joint pain, No Myalgias, No Joint Swelling Skin : No Skin Lesions, No rash Neuro : No Weakness, No Numbness, No Dizziness, No Headache Psych : No Anxiety/Panic, No Depression Heme/Lymph: No Bruising, No Lymphadenopathy Endocrine : + Polyuria, + Polydipsia All other systems reviewed and are negative. [facility] Past Medical History Medical History (Updated 04/07/23 @ 13:18 by Jacqui Amador MD) Type 1 diabetes Family History Family History (Updated 04/05/23 @ 13:43 by CEDRIC Elkins) Mother Diabetes mellitus Social History Social History Household Members: Family Household Members Other:: 1 Housing: Apartment Do you presently have visiting nurse or other home services: No Alcohol intake: current Alcohol intake frequency: a few times a month Alcohol type: hard liquor Patient Tobacco Use Status: Current everyday Tobacco user Tobacco use type: Cigarette Cigarette Packs Per Day: 0.5 Cigarettes Per Day: 8 Years Smoked: 40 e-Cigarette/Vaping Use: Never Used service: No Meds Allergies Allergy/AdvReac Type Severity Reaction Status Date / Time No Known Drug Allergies Allergy Mild NONE Verified 04/05/23 08:03 [NO KNOWN DRUG ALLERGIES] atorvastatin AdvReac Intermediate Muscle Verified 04/05/23 12:09 cramps Active Medications: Current Medications Dextrose (Dextrose 50 % 25 Gm/50 Ml Syringe) 25 gm IVPUSH Q15M PRN; Protocol PRN Reason: per Hypoglycemia Standing Ord. Dextrose (Dextrose 50 % 25 Gm/50 Ml Syringe) 25 gm IVPUSH Q30M PRN PRN Reason: BG < 70 Fentanyl (Fentanyl Citrate/Pf 100 Mcg/2 Ml Vial) 25 mcg IVPUSH Q3H PRN; Protocol PRN Reason: Pain, Moderate(Pain Scale 4-6) Glucose (Glucose Gel 15 Gm Gel..Gram.) 15 gm PO Q15M PRN; Protocol PRN Reason: per Hypoglycemia Standing Ord. Heparin Sodium (Porcine) (Heparin Sodium,Porcine 5,000 Unit/Ml Vial) 5,000 unit SUBCUT Q12H [facility] Last Admin: 04/07/23 03:57 Dose: Not Given Piperacillin Sod/Tazobactam (Sod 3.375 gm/ Sodium Chloride) 50 mls @ 100 mls/hr IV Q6H [facility] Last Infusion: 04/07/23 06:44 Dose: Infused Lactated Ringer's (Lr) 1,000 mls @ 100 mls/hr IVCONT .Q10H [facility] Last Admin: 04/07/23 06:39 Dose: 100 mls/hr Potassium Phosphate (Kphos) 15 mmol in 250 mls @ 62.5 mls/hr IV Q4H [facility] Stop: 04/07/23 16:14 Insulin Glargine (Insulin Glargine,Hum.Rec.Anlog 100 Unit/Ml 10 Ml Vial) 15 u nit SUBCUT DAILY [facility] Insulin Human Lispro (Insulin Lispro 100 Unit/Ml 3 Ml Vial) 0 unit SUBCUT QIDACHS [facility]; Protocol Last Admin: 04/06/23 22:49 Dose: 4 unit Lidocaine (Lidocaine 4 % Patch Adh..Patch) 1 patch TRANSDERMA DAILY [facility]; Protocol Last Admin: 04/06/23 19:47 Dose: Not Given Metoclopramide HCl (Metoclopramide Hcl 10 Mg/2 Ml Vial) 10 mg IVPUSH Q4H PRN PRN Reason: Nausea Last Admin: 04/07/23 06:11 Dose: 10 mg Ondansetron HCl (Ondansetron Hcl 4 Mg/2 Ml Vial) 4 mg IVPUSH Q4H PRN PRN Reason: Nausea and Vomiting Pantoprazole Sodium (Pantoprazole Sodium 40 Mg/10 Ml Vial) 40 mg IVPUSH BID@0630,1630 [facility] Last Admin: 04/07/23 06:11 Dose: 40 mg Sodium Chloride (0.9 % Sodium Chloride Flush 3 Ml Syringe) 3 ml IVFLUSH QSHIFT [facility] Last Admin: 04/07/23 00:00 Dose: Not Given Home Medications Medication Instructions Recorded Confirmed Last Taken Type insulin aspart U-100 100 unit/mL See Rx Instructions .Route .COMPLEX 04/05/23 04/05/23 03/31/23 History subcutaneous solution (Novolog U-100 Insulin aspart) Physical Exam Vital Signs: Vital Signs: Last Vital Signs Temp 98.4 F 04/07/23 07:23 Pulse 86 04/07/23 07:23 Resp 18 04/07/23 07:23 BP 147/78 H 04/07/23 07:23 Pulse Ox 95 04/07/23 07:23 O2 Del Method Room Air 04/07/23 07:23 BMI result Body Mass Index 19.2 EXAM: GENERAL: The patient is relaxed VITAL SIGNS:see workflow HEENT: Nonicteric sclerae, PERRLA, EOMI. Oropharynx clear. Moist mucous membranes. Conjunctivae appear well perfused. No thyroid mass. CHEST: Chest wall is nontender. HEART: Regular rate and rhythm without murmurs. LUNGS: Clear to auscultation bilaterally. ABDOMEN: Soft, positive bowel sounds, tender epigastrium, no organomegaly.no flank tenderness SKIN: No rash, no excessive bruising, petechiae, or purpura. NEUROLOGIC: Cranial nerves II-XII intact without motor/sensory deficit. Psych-nml affect Results Labs 04/07/23 05:44 04/07/23 05:44 Labs: Short CBC 04/06/23 04/06/23 04/07/23 Range/Units 19:00 23:07 05:44 WBC 14.9 H (4.8-10.8) X10*3/uL Hgb 11.6 L 11.8 L 11.6 L (14.0-18.0) g/dl Hct 33.1 L 33.2 L 33.2 L (42.0-52.0) % Plt Count 296 (160-400) X10*3/uL BMP 04/06/23 04/06/23 04/07/23 04:34 10:54 05:44 Sodium 134 L 134 L Potassium 3.5 2.9 L Chloride 101 96 Carbon Dioxide 21 L 20 L 23 BUN 16 10 Creatinine 1.41 H 1.21 Calcium 8.9 8.5 Liver Function 04/07/23 Range/Units 05:44 Albumin 3.4 L (3.5-5.0) g/dL Microbiology Microbiology Results: Microbiology 04/05/23 22:48 Blood - Venous Blood Culture - Final Strep agalactiae (Grp B) 04/05/23 22:41 Blood - Venous Blood Culture - Preliminary No growth after 24 hours. 04/05/23 10:51 Blood - Venous Blood Culture - Preliminary No growth after 24 hours. 04/05/23 10:51 Blood - Venous Blood Culture - Final Strep agalactiae (Grp B) Imaging CT scan - abdomen: Attestation: I personally reviewed and interpreted this imaging study as follows: (spondylosis, mild atherosclerosis, thickened esophagus and stomach ) Assessment and Plan (1) Coffee ground vomiting: Status: Acute Plan 1/ Nausea. vomiting with coffee ground emesis with dark stools, probably from erosive esophagitis or Raven frye tear related to his DKA. He appears improved clinically. I did not appreciate the colitis on my personal review of the Ct imaging which was noted by the radiologist. PLAN: 1/ Cont with PPI, fluid resus, avoid nsaids 2/ IF has worsening nausea, black stools, or anemia then can consider EGD Time Spent With Patient Time: Total time managing care of this patient today ____ minutes. Procedures Date of Service Date of Service: 04/07/23
[2023-04-07] MEDS: Insulin Glargine,Hum.rec.anlog 100 UNIT/ML 10 ML VIAL 15 UNIT SUBCUT (09:14)
[2023-04-07 10:04] LABS: Glucose, Whole Blood 174 mg/dL (60-115)
[2023-04-07] MEDS: Potassium Phosphate/NS 15 MMOL/250 ML PLAST..BAG 62.5 MMOL IV ×2 (10:25→15:12)
[2023-04-07 10:55] VITALS: BP 149/87; PULSE 97; RESP 20; TEMP 37.6; O2SAT 99
[2023-04-07 13:52] LABS: Glucose, Whole Blood 146 mg/dL (60-115)
[2023-04-07] MEDS: Heparin Sodium,Porcine 5,000 UNIT/ML VIAL 5000 UNIT SUBCUT (15:12)
[2023-04-07 15:22] VITALS: BP 182/98; PULSE 99; RESP 19; TEMP 36.6; O2SAT 97
[2023-04-07 17:25] LABS: Glucose, Whole Blood 120 mg/dL (60-115)
[2023-04-07 19:14] VITALS: BP 151/85; PULSE 95; RESP 18; TEMP 37.1; O2SAT 96
[2023-04-07 20:56] LABS: Glucose, Whole Blood 133 mg/dL (60-115)
[2023-04-07] MEDS: 0.9 % Sodium Chloride Flush 3 ML SYRINGE IVFLUSH (23:58)
[2023-04-08] VITALS (8 sets, daily range): BP systolic 97–170; BP diastolic 57–93; PULSE 84–104; RESP 16–20; TEMP 36.6–37.3; O2SAT 94–99
[2023-04-08] MEDS: Lactated Ringers 1,000 ML 100 ML IVCONT ×3 (00:55→21:01)
[2023-04-08 02:31] LABS: Glucose, Whole Blood 110 mg/dL (60-115)
[2023-04-08] MEDS: Piperacillin Sodium/Tazobactam 3.375 GM in 0.9 % Sodium Chloride 50 ML IV ×3 (06:00→21:53)
[2023-04-08 06:05] LABS: Glucose, Whole Blood 143 mg/dL (60-115)
[2023-04-08 09:02] LABS: Anion Gap 16 (12-20); Blood Urea Nitrogen 7 mg/dL (9-16); Calcium 8.2 mg/dL (8.4-10.2); Carbon Dioxide 29 mmol/L (22-29); Chloride 93 mmol/L (96-108); Creatinine Clr Calc Pharmacy 54.6; Estimated Glomerular Filt Rate > 60; Glucose Random 217 mg/dL (60-115); Potassium 2.7 mmol/L (3.3-5.1); Sodium 135 mmol/L (135-145)
[2023-04-08] MEDS: Insulin Glargine,Hum.rec.anlog 100 UNIT/ML 10 ML VIAL 15 UNIT SUBCUT (09:27)
[2023-04-08] MEDS: lisinopriL 2.5 MG TABLET PO (09:27)
[2023-04-08] MEDS: 0.9 % Sodium Chloride Flush 3 ML SYRINGE IVFLUSH (09:27)
[2023-04-08] MEDS: Gabapentin 100 MG CAPSULE PO (09:27)
[2023-04-08 09:55] LABS: Glucose, Whole Blood 206 mg/dL (60-115)
--- NOTE | 2023-04-08 10:10 | MHC.CM.PN ---
Per ROUNDS discussion, Patient is not yet medically cleared for dc (coffee ground emesis); Home is the goal and CM will continue to follow.
[2023-04-08] MEDS: cefTRIAXone sodium 1 GM in 0.9 % Sodium Chloride 50 ML IV (11:09)
[2023-04-08] MEDS: metroNIDAZOLE 500 MG TABLET PO (11:09)
[2023-04-08] MEDS: amLODIPine Besylate 2.5 MG TABLET PO (11:09)
[2023-04-08 13:50] LABS: Magnesium 1.5 mg/dL (1.6-2.6)
[2023-04-08 13:52] LABS: Glucose, Whole Blood 331 mg/dL (60-115)
[2023-04-08] MEDS: Insulin Lispro 100 UNIT/ML 3 ML VIAL SUBCUT ×3 (14:04→21:53)
[2023-04-08] MEDS: Heparin Sodium,Porcine 5,000 UNIT/ML VIAL 5000 UNIT SUBCUT (14:04)
[2023-04-08] MEDS: Potassium Chloride Packet 20 MEQ PACKET PO (14:05)
[2023-04-08] MEDS: Potassium Chloride Packet 20 MEQ PACKET 40 MEQ PO (14:05)
[2023-04-08] MEDS: Doxycycline Hyclate 100 MG in 0.9 % Sodium Chloride 250 ML 166.67 MG IV (14:05)
--- NOTE | 2023-04-08 15:09 | HO.PM.IMPN ---
Subjective Subjective Date of Service: 04/08/23 Interval History: nausea /vomiting, epigastric discomfort Review of Systems Somewhat improving Wants to try clear liquids Physical Exam Vital Signs: Vital Signs: Last Vital Signs Temp 99.0 F 04/08/23 10:59 Pulse 96 04/08/23 10:59 Resp 20 04/08/23 10:59 BP 156/91 H 04/08/23 10:59 Pulse Ox 98 04/08/23 10:59 O2 Del Method Room Air 04/08/23 10:59 BMI result Body Mass Index 19.2 Appearance: Alert.? Oriented X3.? not in distress.? cvs: rrr, [id number] , no murmur res: clear to auscultation ,no rhonchii or wheezing abd: no rebound or guarding ,nt, bs present. ext pulses present , no cyanosis . neuro: axo3 , nonfocal. Objective Data Active Medications Amlodipine Besylate (Amlodipine Besylate 2.5 Mg Tablet) 2.5 mg PO DAILY [facility]; Protocol Last Admin: 04/08/23 11:09 Dose: 2.5 mg Documented By: DAVIN Dextrose (Dextrose 50 % 25 Gm/50 Ml Syringe) 25 gm IVPUSH Q15M PRN; Protocol PRN Reason: per Hypoglycemia Standing Ord. Dextrose (Dextrose 50 % 25 Gm/50 Ml Syringe) 25 gm IVPUSH Q30M PRN PRN Reason: BG < 70 Fentanyl (Fentanyl Citrate/Pf 100 Mcg/2 Ml Vial) 25 mcg IVPUSH Q3H PRN; Protocol PRN Reason: Pain, Moderate(Pain Scale 4-6) Last Admin: 04/06/23 11:35 Dose: 25 mcg Documented By: XIMENA Gabapentin (Gabapentin 100 Mg Capsule) 100 mg PO DAILY [facility] Last Admin: 04/08/23 09:27 Dose: 100 mg Documented By: DAVIN Glucose (Glucose Gel 15 Gm Gel..Gram.) 15 gm PO Q15M PRN; Protocol PRN Reason: per Hypoglycemia Standing Ord. Heparin Sodium (Porcine) (Heparin Sodium,Porcine 5,000 Unit/Ml Vial) 5,000 unit SUBCUT Q12H [facility] Last Admin: 04/08/23 14:04 Dose: 5,000 unit Documented By: DAVIN Lactated Ringer's (Lr) 1,000 mls @ 100 mls/hr IVCONT .Q10H [facility] Last Admin: 04/08/23 11:10 Dose: 100 mls/hr Documented By: DAVIN Ceftriaxone Sodium 1 gm/ (Sodium Chloride) 50 mls @ 100 mls/hr IV Q24H [facility] Last Infusion: 04/08/23 14:03 Dose: 0 mls/hr Documented By: DAVIN Doxycycline Hyclate 100 mg/ (Sodium Chloride) 250 mls @ 166.67 mls/hr IV Q12H [facility] Last Admin: 04/08/23 14:05 Dose: 166.67 mls/hr Documented By: DAVIN Insulin Glargine (Insulin Glargine,Hum.Rec.Anlog 100 Unit/Ml 10 Ml Vial) 15 unit SUBCUT DAILY [facility] Last Admin: 04/08/23 09:27 Dose: 10 unit Documented By: DAVIN Comments: Per Insulin Human Lispro (Insulin Lispro 100 Unit/Ml 3 Ml Vial) 0 unit SUBCUT QIDACHS [facility]; Protocol Last Admin: 04/08/23 14:04 Dose: 8 unit Documented By: DAVIN Lidocaine (Lidocaine 4 % Patch Adh..Patch) 1 patch TRANSDERMA DAILY [facility]; Protocol Last Admin: 04/08/23 09:28 Dose: Not Given Documented By: DAVIN Non-Admin Reason: Patient Refused Lisinopril (Lisinopril 2.5 Mg Tablet) 2.5 mg PO DAILY [facility]; Protocol Last Admin: 04/08/23 09:27 Dose: 2.5 mg Documented By: DAVIN Metoclopramide HCl (Metoclopramide Hcl 10 Mg/2 Ml Vial) 10 mg IVPUSH Q4H PRN PRN Reason: Nausea Last Admin: 04/07/23 15:16 Dose: 10 mg Documented By: DAVIN Metronidazole (Metronidazole 500 Mg Tablet) 500 mg PO BID [facility] Last Admin: 04/08/23 11:09 Dose: 500 mg Documented By: DAVIN Omeprazole (Omeprazole 20 Mg Capsule.) 20 mg PO BID@0630,1630 [facility] Last Admin: 04/08/23 06:03 Dose: Not Given Documented By: TAHMINA Non-Admin Reason: Patient Refused Ondansetron HCl (Ondansetron Hcl 4 Mg/2 Ml Vial) 4 mg IVPUSH Q4H PRN PRN Reason: Nausea and Vomiting Sodium Chloride (0.9 % Sodium Chloride Flush 3 Ml Syringe) 3 ml IVFLUSH QSHIFT [facility] Last Admin: 04/08/23 09:27 Dose: 3 ml Documented By: DAVIN Labs 04/07/23 05:44 04/08/23 08:38 Labs: Laboratory Results - last 24 hr 04/07/23 04/07/23 04/08/23 17:11 20:52 02:27 Anion Gap Estim Creat Clear Calc Estimated GFR POC Glucose 120 H 133 H 110 Random Glucose Calcium Magnesium 04/08/23 04/08/23 04/08/23 06:01 08:38 09:52 Anion Gap 16 Estim Creat Clear Calc 54.6 Estimated GFR > 60 POC Glucose 143 H 206 H Random Glucose 217 H Calcium 8.2 L Magnesium 1.5 L 04/08/23 13:48 Anion Gap Estim Creat Clear Calc Estimated GFR POC Glucose 331 H Random Glucose Calcium Magnesium Microbiology Microbiology Results: Microbiology 04/05/23 22:41 Blood Culture - Preliminary Blood - Venous No growth after 48 hours. 04/05/23 10:51 Blood Culture - Preliminary Blood - Venous No growth after 48 hours. Assessment and Plan (1) Coffee ground vomiting: Status: Acute (2) DKA (diabetic ketoacidosis): Status: Acute (3) Type 1 diabetes: Status: Acute (4) Colitis: Status: Acute (5) SIMONE (acute kidney injury): Status: Acute Plan colitis - CT abdomen pelvis without contrast revealed question mild colitis of the distal colon.? abd pain seems improving. blood culture grew: Strep agalactiae started cler liquid diet added ceftriaxone ,dc zosyn in addition patient was seen by GI: Possible component of erosive esophagitis or [place] tear?-added PPI. ?DKA ?-Initially was in DKA on arrival, anion gap noted to be 22, random glucose on arrival 375, the hydroxybutyrate 3.7 - Patient is insulin dependent on insulin pump however he ran out a few days ago. Patient received Iv insulin drio/fluids in ICU-seems improving' now on subqi lantus, still tolerating only full liquid only. - Patient does follow with [employer] and can supply supervisor? Khushi Santoyo out of [place] - Patient will require supplies prior to discharge. SIMONE -Patient not having SIMONE with creatinine of 1.88, patient's baseline appears ranged from 1.2.? -SIMONE likely secondary to hypovolemia/ GI losses.? moniter closely Hypovolemic hyponatremia -Patient's Na noted to be 129, again likely secondary to hypovolemia/ GI losses Resolved with hydration and DKA management. Hypokalemia and hypomagnesemia: Repleted Monitor BMP Tobacco use Tobacco use? Counseling - Patient reports smoking 8 cigarettes daily.? He was educated in the importance of abstaining/cutting down from nicotine use. - NRT therapy was offered however patient declined right foot cellulitis : ?xray-? forign body/? needle blood culture grew -Strep agalactiae continue doxy/zosyn Id and ortho eval. htn : added lisinopril,moniter bp closely DVT prophylaxis - heparin subQ.? Intermittent sequential boots. ongoing hospitalisation need: Colitis, strep agalactiae a bacteremia, right foot cellulitis-need IV antibiotics, need ortho and ID evaluation, also tolerating full liquid diet only so far. Time Spent With Patient Time: Total time managing care of this patient today ____ minutes. Quality Stroke Does the patient have a stroke diagnosis?: No VTE Prior VTE?: No VTE Risk Level:: Medical - moderate - high VTE Device Contraindication: N/A - Device Ordered VTE Drug Contraindication: N/A - Med Ordered
--- NOTE | 2023-04-08 16:55 | P.CNID_ITS ---
History of Present Illness Data of Consult Service Date: 04/08/23 Requesting physician: Karen Gr Primary Care Provider: Bassem Major MD HPI Reason for consult: sepsis Group B strep He presents with weakness and redness right foot for last three days. He has DM. Blood cultures Group B strep. He has right toe no definite OM. Review of Systems Review of Systems: Yes all other systems are reviewed and are negative [facility] Past Medical History Medical History Type 1 diabetes Family History Family History Mother Diabetes mellitus Family history: reviewed and not pertinent Social History Social History Household Members: Family Household Members Other:: 1 Housing: Apartment Do you presently have visiting nurse or other home services: No Alcohol intake: current Alcohol intake frequency: a few times a month Alcohol type: hard liquor Patient Tobacco Use Status: Current everyday Tobacco user Tobacco use type: Cigarette Cigarette Packs Per Day: 0.5 Cigarettes Per Day: 8 Years Smoked: 40 e-Cigarette/Vaping Use: Never Used service: No Meds Allergies Allergy/AdvReac Type Severity Reaction Status Date / Time No Known Drug Allergies Allergy Mild NONE Verified 04/05/23 08:03 [NO KNOWN DRUG ALLERGIES] atorvastatin AdvReac Intermediate Muscle Verified 04/05/23 12:09 cramps Active Medications: Current Medications Amlodipine Besylate (Amlodipine Besylate 2.5 Mg Tablet) 2.5 mg PO DAILY [facility]; Protocol Last Admin: 04/08/23 11:09 Dose: 2.5 mg Dextrose (Dextrose 50 % 25 Gm/50 Ml Syringe) 25 gm IVPUSH Q15M PRN; Protocol PRN Reason: per Hypoglycemia Standing Ord. Dextrose (Dextrose 50 % 25 Gm/50 Ml Syringe) 25 gm IVPUSH Q30M PRN PRN Reason: BG < 70 Fentanyl (Fentanyl Citrate/Pf 100 Mcg/2 Ml Vial) 25 mcg IVPUSH Q3H PRN; Protocol PRN Reason: Pain, Moderate(Pain Scale 4-6) Last Admin: 04/06/23 11:35 Dose: 25 mcg Gabapentin (Gabapentin 100 Mg Capsule) 100 mg PO DAILY [facility] Last Admin: 04/08/23 09:27 Dose: 100 mg Glucose (Glucose Gel 15 Gm Gel..Gram.) 15 gm PO Q15M PRN; Protocol PRN Reason: per Hypoglycemia Standing Ord. Heparin Sodium (Porcine) (Heparin Sodium,Porcine 5,000 Unit/Ml Vial) 5,000 unit SUBCUT Q12H [facility] Last Admin: 04/08/23 14:04 Dose: 5,000 unit Lactated Ringer's (Lr) 1,000 mls @ 100 mls/hr IVCONT .Q10H [facility] Last Admin: 04/08/23 11:10 Dose: 100 mls/hr Doxycycline Hyclate 100 mg/ (Sodium Chloride) 250 mls @ 166.67 mls/hr IV Q12H [facility] Last Infusion: 04/08/23 16:34 Dose: Infused Piperacillin Sod/Tazobactam (Sod 3.375 gm/ Sodium Chloride) 50 mls @ 100 mls/hr IV Q6H [facility] Insulin Glargine (Insulin Glargine,Hum.Rec.Anlog 100 Unit/Ml 10 Ml Vial) 15 unit SUBCUT DAILY [facility] Last Admin: 04/08/23 09:27 Dose: 10 unit Insulin Human Lispro (Insulin Lispro 100 Unit/Ml 3 Ml Vial) 0 unit SUBCUT QIDACHS [facility]; Protocol Last Admin: 04/08/23 14:04 Dose: 8 unit Lidocaine (Lidocaine 4 % Patch Adh..Patch) 1 patch TRANSDERMA DAILY [facility]; Protocol Last Admin: 04/08/23 09:28 Dose: Not Given Lisinopril (Lisinopril 2.5 Mg Tablet) 2.5 mg PO DAILY [facility]; Protocol Last Admin: 04/08/23 09:27 Dose: 2.5 mg Magnesium Oxide (Magnesium Oxide 400 Mg Tablet) 800 mg PO DAILY [facility] Metoclopramide HCl (Metoclopramide Hcl 10 Mg/2 Ml Vial) 10 mg IVPUSH Q4H PRN PRN Reason: Nausea Last Admin: 04/07/23 15:16 Dose: 10 mg Omeprazole (Omeprazole 20 Mg Capsule.Dr) 20 mg PO BID@0630,1630 [facility] Last Admin: 04/08/23 06:03 Dose: Not Given Ondansetron HCl (Ondansetron Hcl 4 Mg/2 Ml Vial) 4 mg IVPUSH Q4H PRN PRN Reason: Nausea and Vomiting Sodium Chloride (0.9 % Sodium Chloride Flush 3 Ml Syringe) 3 ml IVFLUSH QSHIFT [facility] Last Admin: 04/08/23 15:31 Dose: Not Given Home Medications Medication Instructions Recorded Confirmed Last Taken Type insulin aspart U-100 100 unit/mL See Rx Instructions .Route .COMPLEX 04/05/23 04/05/23 03/31/23 History subcutaneous solution (Novolog U-100 Insulin aspart) Physical Exam Vital Signs: Vital Signs: Last Vital Signs Temp 97.9 F 04/08/23 15:19 Pulse 104 H 04/08/23 15:19 Resp 18 04/08/23 15:19 BP 119/71 04/08/23 15:19 Pulse Ox 99 04/08/23 15:19 O2 Del Method Room Air 04/08/23 15:19 BMI result Body Mass Index 19.2 Extrem: Other: right toe redness sensation diminished pulse plus 3 Results Labs 04/07/23 05:44 04/08/23 08:38 Labs: BMP 04/08/23 08:38 Sodium 135 Potassium 2.7 L Chloride 93 L Carbon Dioxide 29 BUN 7 L Creatinine 1.20 Calcium 8.2 L Microbiology Microbiology Results: Microbiology 04/05/23 22:41 Blood - Venous Blood Culture - Preliminary No growth after 48 hours. 04/05/23 10:51 Blood - Venous Blood Culture - Preliminary No growth after 48 hours. 04/05/23 22:48 Blood - Venous Blood Culture - Final Strep agalactiae (Grp B) 04/05/23 10:51 Blood - Venous Blood Culture - Final Strep agalactiae (Grp B) Assessment and Plan (1) Type 1 diabetes: Status: Acute (2) Severe sepsis with acute organ dysfunction: Status: Acute (3) Type 2 diabetes mellitus with foot ulcer: Status: Acute Concern with Group B strep foot OM. He has diabetes Plan MRI right foot contrast if needed. Continue Zosyn and give Vancomycin instead of Doxycycline Duration antibiotics to be determined. Time Spent With Patient Time: Total time managing care of this patient today ____ minutes.
[2023-04-08] MEDS: Magnesium Sulfate/D5W 1 GM/100 ML PIGGYBACK IV (17:07)
[2023-04-08] MEDS: Omeprazole 20 MG CAPSULE.DR PO (17:07)
[2023-04-08] MEDS: Magnesium Oxide 400 MG TABLET 800 MG PO (17:07)
[2023-04-08 18:07] LABS: Glucose, Whole Blood 238 mg/dL (60-115)
[2023-04-08] MEDS: vancomycin HCL 1,500 MG in 0.9 % Sodium Chloride 500 ML 333.33 MG IV (18:24)
[2023-04-08 21:18] LABS: Glucose, Whole Blood 236 mg/dL (60-115)
[2023-04-09] MEDS: Heparin Sodium,Porcine 5,000 UNIT/ML VIAL 5000 UNIT SUBCUT (02:07)
[2023-04-09] MEDS: Dextrose 50 % 25 GM/50 ML SYRINGE IVPUSH (02:10)
[2023-04-09 02:13] LABS: Glucose, Whole Blood 66 mg/dL (60-115)
[2023-04-09 02:34] LABS: Glucose, Whole Blood 232 mg/dL (60-115)
[2023-04-09] MEDS: Piperacillin Sodium/Tazobactam 3.375 GM in 0.9 % Sodium Chloride 50 ML IV ×2 (02:59→11:21)
[2023-04-09 03:09] LABS: Glucose, Whole Blood 214 mg/dL (60-115)
[2023-04-09 03:09] LABS: Glucose, Whole Blood 233 mg/dL (60-115)
--- NOTE | 2023-04-09 03:10 | PC.NURSE ---
Routine POC obtained, POC 66, pt A+Ox4 and complaining of mild headache. PRN D50 given with good effect. POC checked Q15 minutes until POC > 70 x3 per protocol. Most recent POC of 214. Pt resting comfortably with call grossman within reach. MD aware.
[2023-04-09 03:43] VITALS: BP 127/62; PULSE 93; RESP 20; TEMP 37; O2SAT 95
[2023-04-09 06:00] VITALS: BMI 18.5
[2023-04-09 06:10] LABS: Glucose, Whole Blood 257 mg/dL (60-115)
[2023-04-09] MEDS: Lactated Ringers 1,000 ML 100 ML IVCONT (06:38)
[2023-04-09] MEDS: Omeprazole 20 MG CAPSULE.DR PO (06:38)
[2023-04-09 07:01] LABS: Hematocrit 33.8 % (42.0-52.0); Hemoglobin 11.7 g/dl (14.0-18.0); Mean Corpuscular HGB Conc 34.6 g/dl (31.0-36.0); Mean Corpuscular Hemoglobin 29.8 pg (27.0-33.0); Mean Corpuscular Volume 86.2 fL (80.0-98.0); Mean Platelet Volume 10.4 fL (9.4-12.4); Platelet Count 342 X10*3/uL (160-400); Red Blood Count 3.92 X10*6/uL (4.60-5.80); White Blood Count 9.9 X10*3/uL (4.8-10.8)
[2023-04-09 07:07] VITALS: BP 148/81; PULSE 93; RESP 20; TEMP 36.6; O2SAT 95
[2023-04-09 07:13] LABS: Anion Gap 13 (12-20); Blood Urea Nitrogen 8 mg/dL (9-16); Calcium 8.6 mg/dL (8.4-10.2); Carbon Dioxide 27 mmol/L (22-29); Chloride 99 mmol/L (96-108); Creatinine Clr Calc Pharmacy 50.9; Estimated Glomerular Filt Rate > 60; Glucose Random 240 mg/dL (60-115); Potassium 3.3 mmol/L (3.3-5.1); Sodium 136 mmol/L (135-145)
[2023-04-09] MEDS: Insulin Lispro 100 UNIT/ML 3 ML VIAL SUBCUT ×2 (09:05→11:54)
[2023-04-09] MEDS: Insulin Glargine,Hum.rec.anlog 100 UNIT/ML 10 ML VIAL 15 UNIT SUBCUT (09:06)
[2023-04-09] MEDS: vancomycin HCL 1,000 MG in 0.9 % Sodium Chloride 250 ML 270 MG IV (09:06)
[2023-04-09] MEDS: Gabapentin 100 MG CAPSULE PO (09:09)
[2023-04-09] MEDS: lisinopriL 2.5 MG TABLET PO (09:09)
[2023-04-09] MEDS: Magnesium Oxide 400 MG TABLET 800 MG PO (09:09)
[2023-04-09] MEDS: amLODIPine Besylate 2.5 MG TABLET PO (09:09)
[2023-04-09 10:02] LABS: Glucose, Whole Blood 401 mg/dL (60-115)
[2023-04-09 10:55] VITALS: BP 117/65; PULSE 94; RESP 20; TEMP 36.9; O2SAT 99
[2023-04-09] MEDS: gadobutroL 7.5 ML VIAL IVPUSH (13:04)
--- NOTE | 2023-04-09 14:03 | P.DS_ITS ---
DS: Providers Provider Date of Service: 04/09/23 Date of admission: 04/05/23 13:23 Primary care physician: Bassem Major MD Consults: 04/06/23 04:43 Consult to Wound Care [place]ine [place] [facility] [place] Reason for consultation: diabetic ulcer Has provider been notified: No 04/07/23 07:58 Consult to Gastroenterology Routine Consulting [place] [facility] [place] Reason for consultation: coffee ground /persistent nausea/vomiting Has provider been notified: No 04/08/23 09:46 Consult to Infectious Diseases Routine Consulting [place] [facility] [place] Reason for consultation: Strep agacticae bactermia/foot cellulitis Has provider been notified: No DS: Diagnosis Discharge Diagnosis (1) Type 1 diabetes: Status: Acute (2) Severe sepsis with acute organ dysfunction: Status: Acute (3) Type 2 diabetes mellitus with foot ulcer: Status: Acute DS: Summary Hospital Course Hospital Course: from initial hpi: 57-year-old male with a past medical history significant for insulin-dependent type 1 diabetes mellitus maintain on an insulin pump who to the [facility] emergency department with complaints of nausea, vomiting, diarrhea and abdominal pain ongoing for the past 4 days after he reports being off of his insulin pump due to running out of medication and supplies .? Patient reports that he follows normally with endocrinology however has been unable to get his supplies or insulin from the pharmacy.? Shortly after running out of insulin, patient's symptoms began.? Patient also reports shortness of breath as well as excess thirst however he has been unable to tolerate p.o. intake.? CT abdomen and pelvis without contrast:? Question mild colitis of the distal colon Initial laboratory results: ? CBC revealed WBC 16.8, Hgb & Hct 11.6/33.6, VBG is unrevealing, CMP reveals Na 129, carbon dioxide 15, anion gap 22, BUN/creatinine 28/1.8, initial random glucose 375 -downtrending, magnesium 1.8, beta hydroxybutyrate 3.7, lactic acid 2-blood cultures obtained and pending.? Urinalysis negative for infection.? Respiratory virus panel negative for COVID-19, influenza a/B.? In the emergency department the above was performed and patient received 40 mEq of IV K+ in D/NaCl,? to our, 4 mg IV ondansetron, 5 units Humulin, 3.375 g Zosyn.? The decision was made to admit patient for medical management. hospital course: Patient was admitted for coffee-ground emesis. On PPI his hemoglobin remained stable and did not require transfusion or endoscopy. Likely gastritis or [place] tear. For diabetic ketoacidosis he was given insulin and anion gap closed. For acute kidney injury, this resolved with hydration. For right diabetic foot ulcer with cellulitis and concern for osteomyelitis he was seen by infectious disease who recommended vancomycin, Zosyn, MRI to rule out osteomyelitis. Blood cultures growing group B strep. MRI was done but report pending. Patient requesting to leave against medical advice, risks of doing so were explained to patient including . Patient was able to demonstrate understanding. He will be sent to weeks of p.o. amoxicillin with understanding that this is not ideal for treatment. Time Spent with Patient Time attestation: Total time managing care of this patient today ____ minutes. Discharge coordination time: Greater than 30 minutes Quality: Safe Use of Opioids Does Pt have an Active Cancer Diagnosis on the Problem List?: No Quality: Stroke Does the patient have a stroke diagnosis?: No Physical Exam Vital Signs: Vital Signs: Last Vital Signs Temp 98.4 F 04/09/23 10:55 Pulse 94 04/09/23 10:55 Resp 20 04/09/23 10:55 BP 117/65 04/09/23 10:55 Pulse Ox 99 04/09/23 10:55 O2 Del Method Room Air 04/09/23 10:55 BMI result Body Mass Index 18.5 Extrem: Other: right toe redness sensation diminished pulse plus 3 DS: Data Data Completed and Pending Labs on day of discharge: Laboratory Results - last 24 hr 04/08/23 04/08/23 04/09/23 17:56 20:58 02:07 WBC RBC Hgb Hct MCV MCH MCHC RDW Plt Count MPV Absolute Nucleated RBC Nucleated RBC % (auto) Sodium Potassium Chloride Carbon Dioxide Anion Gap BUN Creatinine Estim Creat Clear Calc Estimated GFR POC Glucose 238 H 236 H 66 Random Glucose Calcium 04/09/23 04/09/23 04/09/23 02:29 02:45 03:03 WBC RBC Hgb Hct MCV MCH MCHC RDW Plt Count MPV Absolute Nucleated RBC Nucleated RBC % (auto) Sodium Potassium Chloride Carbon Dioxide Anion Gap BUN Creatinine Estim Creat Clear Calc Estimated GFR POC Glucose 232 H 233 H 214 H Random Glucose Calcium 04/09/23 04/09/23 04/09/23 05:59 05:59 06:06 WBC 9.9 RBC 3.92 L Hgb 11.7 L Hct 33.8 L MCV 86.2 MCH 29.8 MCHC 34.6 RDW 12.0 Plt Count 342 MPV 10.4 Absolute Nucleated RBC 0.000 Nucleated RBC % (auto) 0.0 Sodium 136 Potassium 3.3 D Chloride 99 Carbon Dioxide 27 Anion Gap 13 BUN 8 L Creatinine 1.24 Estim Creat Clear Calc 50.9 Estimated GFR > 60 POC Glucose 257 H Random Glucose 240 H Calcium 8.6 04/09/23 09:58 WBC RBC Hgb Hct MCV MCH MCHC RDW Plt Count MPV Absolute Nucleated RBC Nucleated RBC % (auto) Sodium Potassium Chloride Carbon Dioxide Anion Gap BUN Creatinine Estim Creat Clear Calc Estimated GFR POC Glucose 401 H* Random Glucose Calcium Preliminary micro results at discharge 04/05/23 22:41 Blood Culture - Preliminary Blood - Venous No growth after 48 hours. 04/05/23 10:51 Blood Culture - Preliminary Blood - Venous No growth after 48 hours. Discharge Plan Discharge Anticipated Discharge Date/Time: 04/09/23 13:46 Patient Disposition: Left Against Medical Advice Discharge Diagnosis: group b strep bacteremia dka Referrals: Bassem Major MD [Primary Care Provider] - 1 Week Discharge Medications: New amoxicillin 500 mg capsule 500 mg PO Q8H Qty: 42 0RF Continued insulin aspart U-100 [Novolog U-100 Insulin aspart] 100 unit/mL solution See Rx Instructions .ROUTE .COMPLEX Rx Instructions: PATIENT USES TANDEM INSULIN PUMP; ADJUSTED BASED OFF CURRENT BLOOD GLUCOSE Discharge Orders: Discharge Order (Routine); Ordered 04/09/23 Ordered By: Brandon Ace Diet: Advance to usual diet Activity on Discharge: As tolerated Stand Alone Forms: Patient Portal Discharge page Care Plan Goals: recovery Health Concerns: bactremia, dfu, dka, gi blees [facility] will [facility] 2 weeks of amoxil, Assessment: see above
--- NOTE | 2023-04-09 14:03 | MHC.CM.PN ---
Patient has left AMA.
== END 2023-04-09 14:00 | disposition left against medical advice (07) | DRG 871 ==
LOC: HO.ED 11:42 → HO.EDOVER 13:32 → HO.ICU 17:33 → HO.IMC 04-06 13:18
PROVIDERS: Internal Medicine; Internal Medicine Pulmonary Disease; Nurse Practitioner Family; Physician Assistant; Admitting Provider Registered Nurse; Emergency Provider Emergency Medicine Emergency Medical Services; PCP Internal Medicine; Visit Provider Internal Medicine
DX: A41.9 Sepsis, unspecified organism (principal); E10.10 Type 1 diabetes mellitus with ketoacidosis without coma; K22.6 Gastro-esophageal laceration-hemorrhage syndrome; K29.71 Gastritis, unspecified, with bleeding; E87.1 Hypo-osmolality and hyponatremia; L03.115 Cellulitis of right lower limb; E86.0 Dehydration; R65.20 Severe sepsis without septic shock; E83.42 Hypomagnesemia; E87.6 Hypokalemia; E86.1 Hypovolemia; N19 Unspecified kidney failure; F17.210 Nicotine dependence, cigarettes, uncomplicated; E10.40 Type 1 diabetes mellitus with diabetic neuropathy, unspecified; T38.3X6A Underdosing of insulin and oral hypoglycemic [antidiabetic] drugs, initial encounter; K52.9 Noninfective gastroenteritis and colitis, unspecified; E10.621 Type 1 diabetes mellitus with foot ulcer; B95.1 Streptococcus, group B, as the cause of diseases classified elsewhere; M79.81 Nontraumatic hematoma of soft tissue; L97.519 Non-pressure chronic ulcer of other part of right foot with unspecified severity; Z71.6 Tobacco abuse counseling; Z20.822 Contact with and (suspected) exposure to COVID-19; Z96.41 Presence of insulin pump (external) (internal)
CPT/HCPCS: 36415; 73620; 73720; 74176; 80048; 80053; 80076; 81001; 82010; 82040; 82803; 82947; 83036; 83605; 83735; 84100; 85007; 85014; 85018; 85025; 85027; 87040; 87147; 87205; 87502; 87635; 93005; 99285; A9585; J0696; J1643; J2405; J2543; J2765; J3010; J3370; J3371; J3475

== ENCOUNTER → 2023-04-05 08:10 | Outpatient (BNV) | payer MEDICARE, SELFPAY | PROVIDERS: Admitting Provider Registered Nurse; Emergency Provider Emergency Medicine Emergency Medical Services; PCP Internal Medicine; Visit Provider Internal Medicine Cardiovascular Disease | DX: R00.0 Tachycardia, unspecified (principal) | CPT/HCPCS: 93010 ==

== ENCOUNTER → 2023-04-05 13:23 | Outpatient (BNV) | payer MEDICARE, SELFPAY | PROVIDERS: Admitting Provider Registered Nurse; Emergency Provider Emergency Medicine Emergency Medical Services; PCP Internal Medicine; Visit Provider Internal Medicine Gastroenterology | DX: K92.0 Hematemesis (principal) | CPT/HCPCS: 99232 ==

== ENCOUNTER → 2023-04-05 13:23 | Outpatient (BNV) | payer MEDICARE, SELFPAY | PROVIDERS: Admitting Provider Registered Nurse; Emergency Provider Emergency Medicine Emergency Medical Services; PCP Internal Medicine; Visit Provider Registered Nurse | DX: A41.9 Sepsis, unspecified organism (principal); R65.20 Severe sepsis without septic shock; E10.10 Type 1 diabetes mellitus with ketoacidosis without coma; E10.621 Type 1 diabetes mellitus with foot ulcer; L97.519 Non-pressure chronic ulcer of other part of right foot with unspecified severity; Z96.41 Presence of insulin pump (external) (internal); Z53.29 Procedure and treatment not carried out because of patient's decision for other reasons | CPT/HCPCS: 99223; 99232; 99239; 99499 ==

== ENCOUNTER → 2023-04-05 13:23 | Outpatient (BNV) | payer MEDICARE, SELFPAY | PROVIDERS: Admitting Provider Registered Nurse; Emergency Provider Emergency Medicine Emergency Medical Services; PCP Internal Medicine; Visit Provider Internal Medicine Pulmonary Disease | DX: E10.10 Type 1 diabetes mellitus with ketoacidosis without coma (principal); N17.9 Acute kidney failure, unspecified; K52.9 Noninfective gastroenteritis and colitis, unspecified | CPT/HCPCS: 99232 ==

== ENCOUNTER → 2023-04-05 13:23 | Outpatient (BNV) | payer MEDICARE, SELFPAY | PROVIDERS: Admitting Provider Registered Nurse; Emergency Provider Emergency Medicine Emergency Medical Services; PCP Internal Medicine; Visit Provider Internal Medicine | DX: A41.9 Sepsis, unspecified organism (principal); R65.20 Severe sepsis without septic shock; E11.621 Type 2 diabetes mellitus with foot ulcer; L97.509 Non-pressure chronic ulcer of other part of unspecified foot with unspecified severity | CPT/HCPCS: 99222 ==